=== PATIENT | female | born 1925 | race American Indian/Alaskan Native ===

== ENCOUNTER 2017-06-24 16:47 | Inpatient (IN) | payer MEDICARE ==
[2017-06-24 16:49] VITALS: BMI 33.0
--- NOTE | 2017-06-24 18:10 | ED PDOC ---
Arrival/HPI <Kyle Amador - Last Filed: 06/24/17 22:44> - General Historian: Patient EM Caveat: Acuity of Condition - History of Present Illness Time/Duration: Prior to Arrival Symptom Onset: Gradual Symptom Course: Unchanged Quality: Aching Severity Level: 6 Activities at Onset: Rest Context: Home <Alvarado Melgar - Last Filed: 06/24/17 22:54> - General Chief Complaint: GI Problem Time Seen by Provider: 06/24/17 17:21 - History of Present Illness Narrative History of Present Illness (Text): 06/24/17 18:13 89 year old female patient with past medical history of rectal polyp (2013), sarcoidosis, HTN, DM II presents with complaints of constipation for 3 days. Most of history was obtained through patient's daughter since patient was too tired to speak. As per patient's daughter, she has been having issues with constipation on and off for the past few months. Patient was diagnosed with rectal cancer in 2013 in [place] but has not followed up through with a colonoscopy because she didn't want to go through the process at her age. However in the last two weeks patient was complaining of abdominal pain when attempting to move her bowels and decided to set an appt with her GI physician Dr. Mccarthy for to be evaluated for 06/28/17 for colonoscopy. Patient denies nausea, vomiting, diarrhea, lack of flatulence, dysuria, headache, dizziness, weakness. PMD: Dr. Nicole SHx: hysterectomy, Left knee replacement (Alvarado Melgar) Past Medical History - Provider Review Nursing Documentation Reviewed: Yes - Travel History If Yes, travel location?: [place] - Infectious Disease Hx of Infectious Diseases: None - Tetanus Immunization Tetanus Immunization: Unknown - Cardiac Hx Hypertension: Yes - Pulmonary Hx Respiratory Disorders: No - Neurological Hx Neurological Disorder: Yes Other/Comment: benign brain tumor - HEENT Hx HEENT Disorder: Yes Hx Cataracts: Yes (sx) - Renal Hx Renal Disorder: No - Endocrine/Metabolic Hx Diabetes Mellitus Type 2: Yes - Hematological/Oncological Hx Blood Disorders: Yes Other/Comment: sarcoidosis - Integumentary Hx Dermatological Disorder: Yes (LARGE SCARRING TO LEFT [id number] SKIN GRAFT) - Musculoskeletal/Rheumatological Hx Falls: Yes (in the past) - Gastrointestinal Hx Gastrointestinal Disorders: Yes Hx Diverticulitis: Yes Other/Comment: h/o rectal cancer - Genitourinary/Gynecological Hx Reproductive Disorders: Yes (hysterectomy) - Psychiatric Hx Psychophysiologic Disorder: No Hx Substance Use: No - Surgical History Hx Hysterectomy: Yes Other/Comment: LEFT KNEE REPLACED WITH KNEE IMPLANT REMOVED,LARGE SCARRING, DISFIGURED LOOK.KELOID FORMED.SKIN GRAFT TO IT.RIGHT THIGH SKIN WAS TAKEN. - Anesthesia Hx Anesthesia: No Hx Anesthesia Reactions: No Hx Malignant Hyperthermia: No - Suicidal Assessment Feels Threatened In Home Enviroment: No <Alvarado Melgar - Last Filed: 06/24/17 22:54> Family/Social History <Kyle Amador - Last Filed: 06/24/17 22:44> - Physician Review Nursing Documentation Reviewed: Yes Family/Social History: Other Smoking Status: Never Smoked Hx Alcohol Use: No Hx Substance Use: No Hx Substance Use Treatment: No <Alvarado Melgar - Last Filed: 06/24/17 22:54> Narrative Family History (Free Text): non contributory 06/24/17 18:08 (Alvarado Melgar) Allergies/Home Meds <Kyle Amador - Last Filed: 06/24/17 22:44> <Alvarado Melgar - Last Filed: 06/24/17 22:54> Allergies/Adverse Reactions: Allergies No Known Allergies Allergy (Verified 06/24/17 17:06) Home Medications: Home Meds Medication Instructions Recorded Confirmed Amlodipine Besylate [Norvasc] 5 mg PO DAILY 11/10/15 06/24/17 Concor 2.5 mg PO DAILY 06/24/17 06/24/17 MetFORMIN [glucoPHAGE] 500 tab PO BID 06/24/17 06/24/17 Trental 400 mg PO BID 06/24/17 06/24/17 diaZEpam [Valium] 5 mg PO DAILY 06/24/17 06/24/17 Review of Systems - Physician Review All systems were reviewed & negative as marked: Yes - Review of Systems Systems not reviewed;Unavailable: Acuity of Condition Constitutional: absent: Fatigue, Weight Change Eyes: absent: Vision Changes ENT: absent: Hearing Changes, Tinnitus Respiratory: Cough. absent: SOB Cardiovascular: absent: Chest Pain, Palpitations Gastrointestinal: Abdominal Pain, Constipation, Appetite Changes. absent: Diarrhea, Nausea, Vomiting Genitourinary Female: Frequency. absent: Dysuria Skin: absent: Rash, Pruritis Neurological: absent: Headache, Dizziness, Focal Weakness Endocrine: Normal Hemo/Lymphatic: Normal Psychiatric: Normal <Alvarado Melgar - Last Filed: 06/24/17 22:54> Physical Exam Vital Signs Reviewed: Yes Temperature: Afebrile Blood Pressure: Normal Pulse: Regular Appearance: Positive for: Comfortable (falling asleep because she didn't sleep much the night before) Pain Distress: Mild Mental Status: Positive for: Alert and Oriented X 3 - Systems Exam Head: Present: Atraumatic, Normocephalic Extroacular Muscles: Present: EOMI Conjunctiva: Present: Normal Mouth: Present: Moist Mucous Membranes. No: Dry Respiratory/Chest: Present: Clear to Auscultation, Good Air Exchange Cardiovascular: Present: Regular Rate and Rhythm, Murmurs, Normal S1, S2 Abdomen: Present: Tenderness, Distention, Normal Bowel Sounds (absent). No: Peritoneal Signs, Rebound, Guarding Upper Extremity: Present: Normal Inspection Lower Extremity: Present: Edema (B/L), Other (scar and keloid growth on left LE due to knee replacement surgery olivier not healing well. ). No: CALF TENDERNESS Skin: Present: Warm, Normal Color Psychiatric: Present: Alert, Oriented x 3 <Alvarado Melgar - Last Filed: 06/24/17 22:54> Vital Signs Temp Pulse Resp BP Pulse Ox 06/24/17 17:03 98.1 F 59 L 19 107/57 L 96 Medical Decision Making <Kyle Amador - Last Filed: 06/24/17 22:44> - Lab Interpretations I have reviewed the lab results: Yes - RAD Interpretation Penal Officer: Radiologist <Alvarado Melgar - Last Filed: 06/24/17 22:54> ED Course and Treatment: 06/24/17 22:02 Florinda Bethea is an 89 year old female whose presents to the emergency department complaining of constipation for the past few months. In agreement with resident note which contains more details about the patient. Patient was seen and evaluated with resident. Came up with plan and treatment together. 06/24/17 22:[address] result showing SBO - will need to be admitted for surgical evaluation and treatment. K is also noted to be 5.5 - given sbo - will be unable to use kayexalate. Will give D50 and insulin. Case discussed with Dr. Crooks, covering Dr. Nicole for admission. Consult for Dr. Newell. (Kyle Amador) Assessment 89 year old female presenting with complaints of 3 days constipation Plan - CBC, CMP, Amylase, Lipase - CT abdomen - UA 06/24/17 18:32 (Alvarado Melgar) - Lab Interpretations Lab Results: 06/24/17 18:20 06/24/17 21:00 Lab Results 06/24/17 21:00: Potassium 5.5 H 06/24/17 20:15: Urine Color Yellow, Urine Appearance Clear, Urine pH 7.0, Ur Specific [place] 1.010, Urine Protein 30 H, Urine Glucose (UA) Negative, Urine Ketones Negative, Urine Blood Trace-intact H, Urine Nitrate Negative, Urine Bilirubin Negative, Urine Urobilinogen 0.2, Ur Leukocyte Esterase Trace H, Urine RBC 1 - 3, Urine WBC 2 - 5, Ur Epithelial Cells 6 - 8, Amorphous Sediment Few, Urine Bacteria Many, Hyaline Casts 0 - 2, Fine Granular Casts 0 - 2, Urine Other [place] 06/24/17 20:05: Sodium 139, Potassium 6.1 H*, Chloride 103, Carbon Dioxide 26, Anion Gap 16, BUN 19, Creatinine 1.3, Est GFR ( Amer) 47, Est GFR (Non- Af Amer) 39, Random Glucose 121 H, Calcium 10.0, Total Bilirubin 0.3, AST 20, ALT 19, Alkaline Phosphatase 56, Total Protein 7.2, Albumin 4.1, Globulin 3.2, Albumin/Globulin Ratio 1.3, Amylase 72, Lipase 72 06/24/17 18:20: WBC 4.7, RBC 4.23, Hgb 11.0 L, Hct 35.0 L, MCV 82.7, MCH 26.0, MCHC 31.4, RDW 17.5 H, Plt Count 246, MPV 10.0, Gran % 51.1, Lymph % (Auto) 36.7 H, [place] % (Auto) 10.3 H, Eos % (Auto) 1.9, Baso % (Auto) 0.0, Gran # 2.38, Lymph # 1.7, [place] # 0.5, Eos # 0.1, Baso # 0.00 - RAD Interpretation Radiology Orders: 06/24/17 18:01 ABDOMEN & PELVIS [ABD & PELVIS PO CONTRAST ONLY] [CT] Stat 06/24/17 19:03 CHEST PORTABLE [RAD] Stat - Medication Orders Current Medication Orders: Dextrose (Dextrose 50% Inj) 100 ml IVP STAT STA Stop: 06/24/17 22:46 Sodium Chloride (Sodium Chloride 0.9%) 1,000 mls @ 100 mls/hr IV .Q10H STA Stop: 06/25/17 08:44 Insulin Human Regular (Humulin R) 8 units IVP ONCE STA Stop: 06/24/17 22:46 Discontinued Medications Iohexol (Omnipaque 240 (50 Ml)) Confirm Administered Dose 50 ml .ROUTE .STK-MED ONE Stop: 06/24/17 18:24 - PA / ELECTION ASSISTANT / Resident Statement / has reviewed & agrees with the documentation as recorded. / has examined the patient and agrees with the treatment plan. <Kyle Amador - Last Filed: 06/24/17 22:44> Disposition/Present on Arrival - Disposition Have Diagnosis and Disposition been Completed?: Yes Disposition Time: 22:30 Patient Plan: Admission <Kyle Amador - Last Filed: 06/24/17 22:44> - Present on Arrival Any Indicators Present on Arrival: No History of DVT/PE: No History of Uncontrolled Diabetes: No Urinary Catheter: No History of Decub. Ulcer: No History Surgical Site Infection Following: None <Alvarado Melgar - Last Filed: 06/24/17 22:54> - Disposition Diagnosis: Small bowel obstruction, Hyperkalemia Disposition: HOSPITALIZED Patient Problems: Current Active Problems Problem Status Onset Hyperkalemia Acute Small bowel obstruction Acute Condition: FAIR Referrals: Nabor Nicole MD [Primary Care Provider] - Follow up with primary Forms: [employer] ([employer])
[2017-06-24] MEDS ORDERED: Iohexol 240 (50 ml) ONE (18:23)
[2017-06-24 18:37] LABS: EOS # 0.1 (0.0-0.7); EOS % 1.9 % (1.5-5.0); GRAN # 2.38 (1.4-6.5); GRAN % 51.1 % (50.0-68.0); LYMPH # 1.7 (1.2-3.4); LYMPH % 36.7 % (22.0-35.0); MEAN CELL VOLUME 82.7 fl (80.0-105.0); MEAN CORPUSCULAR HGB CONC 31.4 g/dl (31.0-37.0); MONO # 0.5 (0.1-0.6); MONO % 10.3 % (1.0-6.0); RED CELL DISTRIBUTION WIDTH 17.5 % (11.5-14.5); WHITE BLOOD COUNT 4.7 10^3/ul (4.5-11.0)
[2017-06-24 20:22] LABS: ALB/GLOB RATIO 1.3 (1.1-1.8); BILIRUBIN,TOTAL 0.3 mg/dL (0.2-1.3); TOTAL PROTEIN 7.2 g/dL (5.8-8.3)
[2017-06-24 20:27] LABS: POTASSIUM 6.1 mmol/L (3.6-5.0)
[2017-06-24 20:29] LABS: URINE APPEARANCE CLEAR (CLEAR); URINE BILIRUBIN NEGATIVE (NEGATIVE); URINE BLOOD TRACE-INTACT (NEGATIVE); URINE COLOR YELLOW (YELLOW); URINE GLUCOSE (UA) NEGATIVE (NEGATIVE); URINE KETONE NEGATIVE (NEGATIVE); URINE LEUKOCYTE ESTERASE TRACE Leu/uL (NEGATIVE); URINE PROTEIN 30 mg/dL (<30 mg/dL); URINE UROBILINOGEN 0.2 E.U./dL (<1 E.U./dL)
[2017-06-24 20:32] LABS: URINE BACTERIA MANY (NEG)
[2017-06-24 20:34] LABS: URINE AMORPHOUS SEDIMENT FEW
[2017-06-24] MEDS ORDERED: Sod Polystyrene Sulf 15 gm/60 ml Oral Susp PO STA (22:12)
--- NOTE | 2017-06-24 22:32 | CT ---
EXAM: CT Abdomen and Pelvis Without Intravenous Contrast CLINICAL HISTORY: 89 years old, female; Pain; Abdominal pain; Prior surgery; Surgery type: Hysterectomy TECHNIQUE: Axial computed tomography images of the abdomen and pelvis without intravenous contrast. All CT scans at this facility use one or more dose reduction techniques, viz.: automated exposure control; ma/kV adjustment per patient size (including targeted exams where dose is matched to indication; i.e. head); or iterative reconstruction technique. Coronal and sagittal reformatted images were created and reviewed. COMPARISON: CT - ABD PELVIS PO CONTRAST ONLY 11/21/2015 1:08:24 AM FINDINGS: Lower thorax: Small hiatal hernia. Small amount of contrast within the mid and distal esophagus compatible with reflux or vomiting. There is mild atelectasis and/or scarring in the lung bases. The visualized heart appears mildly enlarged. The visualized thoracic aorta is atherosclerotic. ABDOMEN: Liver: There are no focal liver lesions present. Gallbladder and bile ducts: The gallbladder is contracted but otherwise normal. No calcified stones. No ductal dilation. Pancreas: Pancreas is slightly fatty replaced. No ductal dilation. Spleen: The spleen is normal. Adrenals: The adrenal glands are normal. Kidneys and ureters: There is no evidence of hydronephrosis. Stomach and bowel: There is small bowel obstruction, with proximal loops measuring up to 4 CM and distal loops are decompressed 2 as little as a millimeters. Transition zone appears to be at the mid abdomen. The stomach is normal. Colonic constipation is present. No mucosal thickening. Appendix: No findings to suggest acute appendicitis. PELVIS: Bladder: Bladder is partially decompressed and grossly unremarkable. No stones. Reproductive: Hysterectomy. ABDOMEN and PELVIS: Intraperitoneal space: There is no evidence of free intraperitoneal fluid. There is no free intraperitoneal air. Bones/joints: There are moderate degenerative changes present. There is moderate diffuse osteopenia. No acute fracture. No dislocation. Soft tissues: Unremarkable. Vasculature: There is calcification of the aortic root. The aorta demonstrates moderate atherosclerotic calcification. Lymph nodes: There is no evidence of lymphadenopathy. Other findings: Left mid pole cyst measures 6.4 CM. IMPRESSION: 1. Small hiatal hernia. Small amount of contrast within the mid and distal esophagus compatible with reflux or vomiting. 2. There is small bowel obstruction, with proximal loops measuring up to 4 CM and distal loops are decompressed 2 as little as a millimeters. Transition zone appears to be at the mid abdomen. 3. Additional incidental and/or chronic findings as described.
[2017-06-24] MEDS ORDERED: Sodium Chloride 0.9% 1,000 ML IV STA (22:45)
[2017-06-24] MEDS ORDERED: Insulin Regular 1 UNITS/0.01 ML ML IVP STA (22:45)
[2017-06-24] MEDS ORDERED: Dextrose 50% SYRINGE Inj (50 ml) IVP STA (22:45)
--- NOTE | 2017-06-25 00:02 | CP.PCM.HP ---
<Huber Parisi - Last Filed: 06/25/17 01:09> History of Present Illness - History of Present Illness History of Present Illness: cc: abdominal pain Patient is a 89 year old female with past medical history of diverticulitis, HTN , benign brain tumor, cataracts, DM, sarcoidosis, arthritis, and falls who presents to the ED for evaluation and treatment of abdominal pain which began 2 days ago. States the pain is characterized as a pressure that remains localized to the lower abdomen. Denies exacerbating and remitting factors. States her last BM was 3 days ago, which was nonbloody. Patient is tolerating diet. As per the ED chart, the patient was diagnosed with rectal cancer in 2013 in [place] but has not followed up through with a colonoscopy because she didn't want to go through the process at her age. Denies fever, chills, chest pain, SOB, N/V, diarrhea, and urinary symptoms. PMD: Dr. Nicole GI Physician- Dr. Mccarthy PMHx: diverticulitis, HTN, Benign brain tumor, cataracts, DM, sarcoidosis, arthritis, falls, SHx: hysterectomy, Left knee replacement, skin graft Allergies: NKDA Social: denies ETOH use, tobacco use, and illicit drug use Family hx- HTN Present on Admission - Present on Admission Any Indicators Present on Admission: Yes Review of Systems - Hematologic/Lymphatic Additional comments: 12 point review of systems negative except as indicated in HPI Past Patient History - Infectious Disease Hx of Infectious Diseases: None - Tetanus Immunizations Tetanus Immunization: Unknown - Past Social History Smoking Status: Never Smoked - CARDIAC Hx Hypertension: Yes - PULMONARY Hx Respiratory Disorders: No - NEUROLOGICAL Hx Neurological Disorder: Yes Other/Comment: benign brain tumor - HEENT Hx HEENT Problems: Yes Hx Cataracts: Yes (sx) - RENAL Hx Chronic Kidney Disease: No - ENDOCRINE/METABOLIC Hx Diabetes Mellitus Type 2: Yes - HEMATOLOGICAL/ONCOLOGICAL Hx Blood Disorders: Yes Other/Comment: sarcoidosis - INTEGUMENTARY Hx Dermatological Problems: Yes (LARGE SCARRING TO LEFT [id number] SKIN GRAFT) - MUSCULOSKELETAL/RHEUMATOLOGICAL Hx Falls: Yes (in the past) - GASTROINTESTINAL Hx Gastrointestinal Disorders: Yes Hx Diverticulitis: Yes Other/Comment: h/o rectal cancer - GENITOURINARY/GYNECOLOGICAL Hx Reproductive Disorders: Yes (hysterectomy) - PSYCHIATRIC Hx Psychophysiologic Disorder: No Hx Substance Use: No - SURGICAL HISTORY Hx Hysterectomy: Yes Other/Comment: LEFT KNEE REPLACED WITH KNEE IMPLANT REMOVED,LARGE SCARRING, DISFIGURED LOOK.KELOID FORMED.SKIN GRAFT TO IT.RIGHT THIGH SKIN WAS TAKEN. - ANESTHESIA Hx Anesthesia: No Hx Anesthesia Reactions: No Hx Malignant Hyperthermia: No Meds Allergies/Adverse Reactions: Allergies Allergy/AdvReac Type Severity Reaction Status Date / Time No Known Allergies Allergy Verified 06/24/17 17:06 Physical Exam - Constitutional Appears: Non-toxic, No Acute Distress - Head Exam Head Exam: ATRAUMATIC, NORMAL INSPECTION - Eye Exam Eye Exam: Normal appearance. absent: Scleral icterus - ENT Exam ENT Exam: Mucous Membranes Moist - Neck Exam Neck exam: Positive for: Normal Inspection. Negative for: Tenderness - Respiratory Exam Respiratory Exam: Clear to Auscultation Bilateral, NORMAL BREATHING PATTERN - Cardiovascular Exam Cardiovascular Exam: +S1, +S2 - GI/Abdominal Exam GI & Abdominal Exam: Soft. absent: Rebound, Rigid, Tenderness - Extremities Exam Extremities exam: Positive for: pedal pulses present. Negative for: tenderness - Neurological Exam Neurological exam: CN II-XII Intact, Oriented x3 - Psychiatric Exam Psychiatric exam: Normal Affect, Normal Mood - Skin Additional comments: medial left lower extremity skin lesion noted, no tenderness to palplation, no erythema, no discharge Results - Vital Signs Recent Vital Signs: Last Vital Signs Temp 98.1 F 06/24/17 17:03 Pulse 59 L 06/24/17 17:03 Resp 19 06/24/17 17:03 BP 107/57 L 06/24/17 17:03 Pulse Ox 96 06/24/17 17:03 - Labs Result Diagrams: 06/24/17 18:20 06/24/17 21:00 Assessment & Plan - Assessment and Plan (Free Text) Assessment: Patient is a 89 year old female with past medical history of diverticulitis, HTN , benign brain tumor, cataracts, DM, sarcoidosis, arthritis, falls who is being admitted to the hospital for evaluation and treatment of abdominal pain which began 2 days ago. Abdominal Pain; SBO - CT of abdomen/pelvis reviewed: 1. Small hiatal hernia. Small amount of contrast within the mid and distal esophagus compatible with reflux or vomiting. 2. There is small bowel obstruction, with proximal loops measuring up to 4 CM and distal loops are decompressed 2 as little as a millimeters. Transition zone appears to be at the mid abdomen. - surgery consult- spoke with surgery resident no need for NGT as patient is not vomitting - NPO - IVF Hyperkalemia - 6.1 noted, given insulin/dextrose in ED- down to 5.5 - IVF - monitor closely via daily CMP - no kayexlyate at this time; consider starting kayexlyate if potassium remains greater than 5 in AM - EKG noted, reorder if K > 5 in AM HTN - hold home amlodipine, trental and concor as HR and BP are low normal at this time, monitor closely DM - hold home antidiabetic medications - ISS - Accuchecks ACHS Anemia - noted and Hgb/Hct are at baseline Abnormal UA: - positive for proteins, trace leukocyte esterase, trace blood - no urinary symptoms PPX - protonixs IV - SCD Case will be discussed with attending physician. <Barrett Crooks - Last Filed: 06/25/17 07:40> Results - Vital Signs Recent Vital Signs: Last Vital Signs Temp 97.9 F 06/25/17 07:26 Pulse 76 06/25/17 07:26 Resp 18 06/25/17 07:26 BP 151/73 H 06/25/17 01:17 Pulse Ox 94 L 06/25/17 07:26 - Labs Result Diagrams: 06/24/17 18:20 06/24/17 21:00 Assessment & Plan - Assessment and Plan (Free Text) Plan: went over meds labs xrays consults orders at length w/. the resident
--- NOTE | 2017-06-25 01:13 | CP.PCM.CON ---
History of Present Illness - History of Present Illness History of Present Illness: General Surgery Consult Re: SBO HPI: 89F presented to ED C/O abdominal pain which began 2 days ago. Pain is suprapubic. Last BM was 3 days ago, normal, no blood in bowl. Tolerating diet. Denied F/C, N/V,D, chest pain, SOB, or urinary symptoms. No other complaints. PMH: Hx rectal CA, DM, sarcoidosis, Hx diverticulitis, HTN, benign brain tumor, cataracts, arthritis PSH: hysterectomy, L knee replacement, skin graft SH: denies ETOH use, tobacco use, and illicit drug use All: NKDA Meds: See MAR Review of Systems - Review of Systems All systems: reviewed and no additional remarkable complaints except (as per HPI ) Past Patient History - Infectious Disease Hx of Infectious Diseases: None - Tetanus Immunizations Tetanus Immunization: Unknown - Past Social History Smoking Status: Never Smoked - CARDIAC Hx Hypertension: Yes - PULMONARY Hx Respiratory Disorders: No - NEUROLOGICAL Hx Neurological Disorder: Yes Other/Comment: benign brain tumor - HEENT Hx HEENT Problems: Yes Hx Cataracts: Yes (sx) - RENAL Hx Chronic Kidney Disease: No - ENDOCRINE/METABOLIC Hx Diabetes Mellitus Type 2: Yes - HEMATOLOGICAL/ONCOLOGICAL Hx Blood Disorders: Yes Other/Comment: sarcoidosis - INTEGUMENTARY Hx Dermatological Problems: Yes (LARGE SCARRING TO LEFT [id number] SKIN GRAFT) - MUSCULOSKELETAL/RHEUMATOLOGICAL Hx Falls: Yes (in the past) - GASTROINTESTINAL Hx Gastrointestinal Disorders: Yes Hx Diverticulitis: Yes Other/Comment: h/o rectal cancer - GENITOURINARY/GYNECOLOGICAL Hx Reproductive Disorders: Yes (hysterectomy) - PSYCHIATRIC Hx Psychophysiologic Disorder: No Hx Substance Use: No - SURGICAL HISTORY Hx Hysterectomy: Yes Other/Comment: LEFT KNEE REPLACED WITH KNEE IMPLANT REMOVED,LARGE SCARRING, DISFIGURED LOOK.KELOID FORMED.SKIN GRAFT TO IT.RIGHT THIGH SKIN WAS TAKEN. - ANESTHESIA Hx Anesthesia: No Hx Anesthesia Reactions: No Hx Malignant Hyperthermia: No Meds Allergies/Adverse Reactions: Allergies Allergy/AdvReac Type Severity Reaction Status Date / Time No Known Allergies Allergy Verified 06/24/17 17:06 - Medications Medications: Current Medications Sodium Chloride (Sodium Chloride 0.9%) 1,000 mls @ 100 mls/hr IV .Q10H STA Stop: 06/25/17 08:44 Last Admin: 06/24/17 23:00 Dose: 100 mls/hr Pantoprazole Sodium (Protonix Inj) 40 mg IVP DAILY CIPRIANO Physical Exam - Constitutional Appears: Non-toxic, No Acute Distress - Head Exam Head Exam: ATRAUMATIC, NORMOCEPHALIC - Eye Exam Eye Exam: EOMI Additional comments: cataracts - ENT Exam ENT Exam: Mucous Membranes Dry Additional comments: trachea midline - Respiratory Exam Respiratory Exam: NORMAL BREATHING PATTERN. absent: Respiratory Distress - Cardiovascular Exam Cardiovascular Exam: RRR, +S1, +S2 - GI/Abdominal Exam GI & Abdominal Exam: Guarding (mild), Soft, Tenderness (in suprapubic area). absent: Distended, Firm, Rebound, Rigid Additional comments: old midline scar from hysterectomy - Rectal Exam Rectal Exam: Deferred - Extremities Exam Extremities exam: Negative for: calf tenderness, tenderness - Back Exam Back exam: absent: CVA tenderness (L), CVA tenderness (R) - Neurological Exam Neurological exam: Alert, Oriented x3 - Skin Skin Exam: Dry, Warm Results - Vital Signs Recent Vital Signs: Last Vital Signs Temp 98.1 F 06/24/17 17:03 Pulse 64 06/25/17 00:00 Resp 16 06/25/17 00:00 BP 180/76 H 06/25/17 00:00 Pulse Ox 95 06/25/17 00:00 - Labs Result Diagrams: 06/24/17 18:20 06/24/17 21:00 - Imaging and Cardiology CT scan - abdomen Status: Image reviewed by me, Report reviewed by me Assessment & Plan - Assessment and Plan (Free Text) Assessment: 89F with SBO Plan: NPO IVF analgesia PRN NGT if pt begins vomiting Zofran PRN Serial abdominal exams Monitor for BMs/flatus Hyperkalemia management per medicine Will D/W Dr Reece Aviles PGY4
[2017-06-25] MEDS: Sodium Chloride 0.9% 1,000 ML IV SCH ×2 (06:33→17:50)
[2017-06-25] MEDS: Insulin Lispro (humaLOG) MEDIUM Coverage SC SCH ×4 (09:54→21:44)
[2017-06-25 09:59] LABS: EOS # 0.1 (0.0-0.7); EOS % 2.4 % (1.5-5.0); GRAN # 2.88 (1.4-6.5); GRAN % 52.7 % (50.0-68.0); HEMATOCRIT 34.2 % (36.0-48.0); LYMPH # 1.8 (1.2-3.4); LYMPH % 32.7 % (22.0-35.0); MEAN CELL VOLUME 82.4 fl (80.0-105.0); MEAN CORPUSCULAR HEMOGLOBIN 25.8 pg (25.0-35.0); MEAN CORPUSCULAR HGB CONC 31.3 g/dl (31.0-37.0); MEAN PLATELET VOLUME 10.1 fl (7.0-11.0); MONO # 0.7 (0.1-0.6); MONO % 12.2 % (1.0-6.0); RED CELL DISTRIBUTION WIDTH 17.5 % (11.5-14.5); WHITE BLOOD COUNT 5.5 10^3/ul (4.5-11.0)
[2017-06-25 10:14] LABS: ALB/GLOB RATIO 1.2 (1.1-1.8); BILIRUBIN,TOTAL 0.3 mg/dL (0.2-1.3); CALCIUM 9.8 mg/dL (8.4-10.5); POTASSIUM 5.1 mmol/L (3.6-5.0)
[2017-06-25] MEDS ORDERED: Sod Polystyrene Sulf 15 gm/60 ml Oral Susp PO ONE ×2 (10:23→18:05)
--- NOTE | 2017-06-25 10:24 | RAD ---
HISTORY: cough COMPARISON: Comparison chest 03/14/2016 FINDINGS: LUNGS: Diffuse bilateral somewhat nodular appearing infiltrates. Rule out interstitial pneumonia versus interstitial edema - CHF clinical correlation recommended PLEURA: No significant pleural effusion identified, no pneumothorax apparent. CARDIOVASCULAR: Heart remains enlarged. OSSEOUS STRUCTURES: Degenerative osteoarthritis both shoulder girdles multilevel degenerative spondylosis of the thoracic spine. There is also a mild dextroscoliosis centered at thoracolumbar junction. Left VISUALIZED UPPER ABDOMEN: Normal. OTHER FINDINGS: None. IMPRESSION: Diffuse bilateral somewhat nodular appearing infiltrates. Rule out interstitial pneumonia versus interstitial edema - CHF clinical correlation recommended Cardiomegaly.
--- NOTE | 2017-06-25 10:33 | CP.PCM.PN ---
<Mary Jane Triana - Last Filed: 06/25/17 13:28> Subjective - Date & Time of Evaluation Date of Evaluation: 06/25/17 Time of Evaluation: 10:31 - Subjective Subjective: PGY-2 Progress note Patient seen and examined at bedside. No acute distress. Nurse reports patient had 1 large BM overnight. Patient states that the abd pain resolved. She deneis chest pain, sob, n/v, fevers, chills, dysuria, hematuria. Objective - Vital Signs/Intake and Output Vital Signs (last 24 hours): Temp Pulse Resp BP Pulse Ox 97.4 F L 76 18 153/60 H 90 L 06/25/17 07:30 06/25/17 07:30 06/25/17 07:30 06/25/17 07:30 06/25/17 07:30 - Medications Medications: Current Medications Amlodipine Besylate (Norvasc) 5 mg PO DAILY [facility] Sodium Chloride (Sodium Chloride 0.9%) 1,000 mls @ 75 mls/hr IV .[id number] [facility] Last Admin: 06/25/17 06:33 Dose: 75 mls/hr Insulin Human Lispro (Humalog Med) 0 units SC ACHS [facility] PRN Reason: Protocol Last Admin: 06/25/17 09:54 Dose: Not Given Pantoprazole Sodium (Protonix Inj) 40 mg IVP DAILY [facility] Last Admin: 06/25/17 09:08 Dose: 40 mg - Labs Labs: 06/25/17 09:30 06/25/17 09:30 - Constitutional Appears: Well, No Acute Distress - Head Exam Head Exam: ATRAUMATIC, NORMOCEPHALIC - Eye Exam Eye Exam: EOMI, Normal appearance - ENT Exam ENT Exam: Mucous Membranes Moist - Respiratory Exam Respiratory Exam: Clear to Ausculation Bilateral, NORMAL BREATHING PATTERN. absent: Decreased Breath Sounds, Rales, Rhonchi, Wheezes, Respiratory Distress - Cardiovascular Exam Cardiovascular Exam: REGULAR RHYTHM, +S1, +S2. absent: Tachycardia, Murmur - GI/Abdominal Exam GI & Abdominal Exam: Soft, Normal Bowel Sounds. absent: Distended, Firm, Tenderness - Extremities Exam Extremities Exam: Normal Inspection. absent: Pedal Edema, Tenderness - Neurological Exam Neurological Exam: Alert, Awake, Oriented x3 - Skin Skin Exam: Dry, Intact, Normal Color, Warm Assessment and Plan - Assessment and Plan (Free Text) Assessment: 89 yo female with pmh of diverticulitis, HTN, benign brain tumor, cataracts, DM , sarcoidosis, arthritis, falls who presents for evaluation and treatment of abdominal pain which began 2 days ago. Plan: 1. Abdominal Pain; SBO - CT of abdomen/pelvis reviewed: 1. Small hiatal hernia. Small amount of contrast within the mid and distal esophagus compatible with reflux or vomiting. 2. There is small bowel obstruction, with proximal loops measuring up to 4 CM and distal loops are decompressed 2 as little as a millimeters. Transition zone appears to be at the mid abdomen. - patient had BM - advance diet to CLD - surgery consulted - cont IVF, will D/C once tolerating diet 2. Hyperkalemia - 6.1 noted on admission, given insulin/dextrose in ED- down to 5.5 - AM labs, K is pending - if conts to be elevated will give kayexylate 3. HTN - BP improved, mildly elevated - will restart amlodipine 5 mg daily - will hold home trental and concor for now and will resume if BP not controlled - will cont to monitor HR and BP DM - hold home antidiabetic medications - ISS - Accuchecks ACHS Anemia - noted and Hgb/Hct are at baseline Abnormal UA: - positive for proteins, trace leukocyte esterase, trace blood - no urinary symptoms - follow up urine cultures PPX - protonixs IV - SCD <Barrett Crooks - Last Filed: 06/25/17 14:43> Objective - Vital Signs/Intake and Output Vital Signs (last 24 hours): Temp Pulse Resp BP Pulse Ox 97.4 F L 76 18 153/60 H 90 L 06/25/17 07:30 06/25/17 07:30 06/25/17 07:30 06/25/17 10:55 06/25/17 07:30 - Medications Medications: Current Medications Amlodipine Besylate (Norvasc) 5 mg PO DAILY [facility] Last Admin: 06/25/17 10:55 Dose: 5 mg Sodium Chloride (Sodium Chloride 0.9%) 1,000 mls @ 75 mls/hr IV .[id number] [facility] Last Admin: 06/25/17 06:33 Dose: 75 mls/hr Insulin Human Lispro (Humalog Med) [address] [facility] PRN Reason: Protocol Last Admin: 06/25/17 12:08 Dose: Not Given Pantoprazole Sodium (Protonix Inj) 40 mg IVP DAILY [facility] Last Admin: 06/25/17 09:08 Dose: 40 mg - Labs Labs: 06/25/17 09:30 06/25/17 09:30 Assessment and Plan - Assessment and Plan (Free Text) Plan: went over w/ resident at length labs orders meds improve w/ bm and decrease in pain increas diet to liquids watch closely oob pt recheck labs as per surgery clinically improved
[2017-06-25] MEDS: RIBOFLAVIN PO SCH (21:43)
[2017-06-26] MEDS: Pantoprazole 40 mg EC Tab PO SCH (06:17)
[2017-06-26 07:03] LABS: BASO # 0.01 K/mm3 (0.0-2.0); BASO % 0.2 % (0.0-3.0); EOS # 0.1 (0.0-0.7); EOS % 2.1 % (1.5-5.0); GRAN # 2.63 (1.4-6.5); GRAN % 43.2 % (50.0-68.0); LYMPH # 2.5 (1.2-3.4); LYMPH % 41.4 % (22.0-35.0); MEAN CELL VOLUME 82.9 fl (80.0-105.0); MEAN CORPUSCULAR HEMOGLOBIN 26.3 pg (25.0-35.0); MEAN CORPUSCULAR HGB CONC 31.7 g/dl (31.0-37.0); MONO # 0.8 (0.1-0.6); MONO % 13.1 % (1.0-6.0); RED CELL DISTRIBUTION WIDTH 17.6 % (11.5-14.5); WHITE BLOOD COUNT 6.1 10^3/ul (4.5-11.0)
[2017-06-26 07:24] LABS: ALB/GLOB RATIO 1.3 (1.1-1.8); ALKALINE PHOSPHATASE 57 U/L (38-126); ALT/SGPT 23 U/L (7-56); AST/SGOT 24 U/L (14-36); BILIRUBIN,TOTAL 0.4 mg/dL (0.2-1.3); BLOOD UREA NITROGEN 10 mg/dL (7-21); CALCIUM 9.5 mg/dL (8.4-10.5); CARBON DIOXIDE 26 mmol/L (21-33); CHLORIDE 107 mmol/L (98-107); GFR AFRICAN-AMERICAN > 60; GLUCOSE,RANDOM 119 mg/dL (70-110); MAGNESIUM 1.5 mg/dL (1.7-2.2); PHOSPHOROUS 3.6 mg/dL (2.5-4.5); POTASSIUM 4.2 mmol/L (3.6-5.0); SODIUM 143 mmol/L (132-148)
[2017-06-26] MEDS: Insulin Lispro (humaLOG) MEDIUM Coverage SC SCH ×4 (08:47→22:37)
--- NOTE | 2017-06-26 09:05 | CP.PCM.PN ---
Subjective - Date & Time of Evaluation Date of Evaluation: 06/26/17 Time of Evaluation: 09:02 - Subjective Subjective: General Surgery Progress note for Dr. Newell Patient S&E at bedside. JERE. Patient had some complaints of headaches and abdominal pain overnight. This morning, patient states she feels better Objective - Vital Signs/Intake and Output Vital Signs (last 24 hours): Temp Pulse Resp BP Pulse Ox 98.3 F 102 H 20 161/72 H 80 L 06/26/17 07:28 06/26/17 07:28 06/26/17 07:28 06/26/17 07:28 06/26/17 07:28 Intake and Output: 06/26/17 06/26/17 06:59 18:59 Intake Total 240 Balance 240 - Medications Medications: Current Medications Amlodipine Besylate (Norvasc) 5 mg PO DAILY [facility] Last Admin: 06/25/17 10:55 Dose: 5 mg Diazepam (Valium) 5 mg PO DAILY [facility] PRN Reason: Protocol Home Med (Home Med) 1 unit PO QID [facility] Last Admin: 06/25/17 21:43 Dose: 1 unit Insulin Human Lispro (Humalog Med) 0 units SC ACHS [facility] PRN Reason: Protocol Last Admin: 06/26/17 08:47 Dose: Not Given Non-Formulary Medication (Concor) 2.5 mg PO DAILY [facility] Pantoprazole Sodium (Protonix Ec Tab) 40 mg PO 0600 [facility] Last Admin: 06/26/17 06:17 Dose: 40 mg Pentoxifylline (Pentoxil) 400 mg PO BID [facility] Last Admin: 06/25/17 17:50 Dose: 400 mg Pregabalin (Lyrica) 75 mg PO DAILY [facility] Senna/Docusate Sodium (Senokot S 50 Mg-8.6 Mg) 1 tab PO BID [facility] - Labs Labs: 06/26/17 06:45 06/26/17 06:45 - Constitutional Appears: Non-toxic - Head Exam Head Exam: NORMAL INSPECTION - Eye Exam Eye Exam: EOMI, Normal appearance - ENT Exam ENT Exam: Mucous Membranes Moist - Neck Exam Neck Exam: Full ROM - Respiratory Exam Respiratory Exam: Clear to Ausculation Bilateral. absent: Accessory Muscle Use , Respiratory Distress - Cardiovascular Exam Cardiovascular Exam: REGULAR RHYTHM, +S1, +S2. absent: Bradycardia, Tachycardia - GI/Abdominal Exam GI & Abdominal Exam: Soft, Tenderness Additional comments: mild tenderness. no rebound. Guarding old midline scar from hysterectomy - Extremities Exam Extremities Exam: Full ROM, Normal Inspection. absent: Calf Tenderness, Pedal Edema - Back Exam Back Exam: NORMAL INSPECTION - Neurological Exam Neurological Exam: Alert, Awake - Psychiatric Exam Psychiatric exam: Normal Affect, Normal Mood - Skin Skin Exam: Dry, Intact, Normal Color, Warm
[2017-06-26] MEDS: BISOPROLOL 2.5 MG PO SCH (09:11)
[2017-06-26] MEDS: Docusate-Senna 50 mg-8.6 mg Tab PO SCH ×2 (09:20→17:26)
[2017-06-26] MEDS: Enoxaparin 40 mg Syringe SC SCH (09:20)
[2017-06-26] MEDS: RIBOFLAVIN PO SCH ×4 (09:23→22:35)
[2017-06-26] MEDS ORDERED: Magnesium Sulfate 1 gm in D5W 1 GM/100 ML BAG IVPB ONE (09:23)
--- NOTE | 2017-06-26 14:07 | CP.PCM.PN ---
Subjective - Date & Time of Evaluation Date of Evaluation: 06/26/17 Time of Evaluation: 11:30 - Subjective Subjective: Patient seen and examined at bedside. As per nursing patient right UE is mildly swollen likely due to PIV infiltration. Patient states that her abdominal discomfort has improved since admission. Experienced a BM and is positive for flatus. Patient has an appetite and is tolerating diet. Offers no new complaints at this time. Denies f/c/cp/sob/abdominal pain/n/v/d/c/urinary symptoms. Objective - Vital Signs/Intake and Output Vital Signs (last 24 hours): Temp Pulse Resp BP Pulse Ox 98.3 F 102 H 20 161/72 H 80 L 06/26/17 07:28 06/26/17 07:28 06/26/17 07:28 06/26/17 09:21 06/26/17 07:28 Intake and Output: 06/26/17 06/26/17 06:59 18:59 Intake Total 240 Balance 240 - Medications Medications: Current Medications Amlodipine Besylate (Norvasc) 5 mg PO DAILY [facility] Last Admin: 06/26/17 09:21 Dose: 5 mg Diazepam (Valium) 5 mg PO DAILY [facility] PRN Reason: Protocol Last Admin: 06/26/17 09:20 Dose: 5 mg Enoxaparin Sodium (Lovenox) 40 mg SC DAILY [facility] PRN Reason: Protocol Last Admin: 06/26/17 09:20 Dose: 40 mg Home Med (Home Med) 1 unit PO QID [facility] Last Admin: 06/26/17 09:23 Dose: 1 unit Insulin Human Lispro (Humalog Med) 0 units SC ACHS [facility] PRN Reason: Protocol Last Admin: 06/26/17 08:47 Dose: Not Given Magnesium Oxide (Mag-Ox) 400 mg PO BID [facility] Non-Formulary Medication (Concor) 2.5 mg PO DAILY [facility] Last Admin: 06/26/17 09:11 Dose: Not Given Pantoprazole Sodium (Protonix Ec Tab) 40 mg PO 0600 [facility] Last Admin: 06/26/17 06:17 Dose: 40 mg Pentoxifylline (Pentoxil) 400 mg PO BID [facility] Last Admin: 06/26/17 09:20 Dose: 400 mg Pregabalin (Lyrica) 75 mg PO DAILY [facility] Last Admin: 06/26/17 09:20 Dose: 75 mg Senna/Docusate Sodium (Senokot S 50 Mg-8.6 Mg) 1 tab PO BID [facility] Last Admin: 06/26/17 09:20 Dose: 1 tab Tramadol HCl (Ultram) 50 mg PO TID PRN PRN Reason: Pain, moderate (4-7) - Labs Labs: 06/26/17 06:45 06/26/17 06:45 - Additional Findings Additional findings: - Constitutional Appears: Non-toxic, No Acute Distress - Head Exam Head Exam: ATRAUMATIC, NORMAL INSPECTION - Eye Exam Eye Exam: Normal appearance. absent: Scleral icterus - ENT Exam ENT Exam: Mucous Membranes Moist - Neck Exam Neck exam: Positive for: Normal Inspection. Negative for: Tenderness - Respiratory Exam Respiratory Exam: Clear to Auscultation Bilateral, NORMAL BREATHING PATTERN - Cardiovascular Exam Cardiovascular Exam: +S1, +S2 - GI/Abdominal Exam GI & Abdominal Exam: Soft. absent: Rebound, Rigid, Tenderness - Extremities Exam Extremities exam: Positive for: pedal pulses present. Negative for: tenderness - Neurological Exam Neurological exam: CN II-XII Intact, Oriented x3 - Psychiatric Exam Psychiatric exam: Normal Affect, Normal Mood - Skin Additional comments: medial left lower extremity skin lesion noted, no tenderness to palplation, no erythema, no discharge Assessment and Plan - Assessment and Plan (Free Text) Assessment: 89 yo female with pmh of diverticulitis, HTN, benign brain tumor, cataracts, DM , sarcoidosis, arthritis, falls who presents for evaluation and treatment of abdominal pain which began 2 days ago. Plan: Abdominal Pain; SBO - CT of abdomen/pelvis reviewed: 1. Small hiatal hernia. Small amount of contrast within the mid and distal esophagus compatible with reflux or vomiting. 2. There is small bowel obstruction, with proximal loops measuring up to 4 CM and distal loops are decompressed 2 as little as a millimeters. Transition zone appears to be at the mid abdomen. - patient had BM and is flatus - advance diet - no need for IVF at this time - no surgical intervention required at this time Right Arm Swelling - PIV inviltration vs dvt - US of right UE pending Hyperkalemia - 6.1 noted on admission, given insulin/dextrose in ED and kayexylate yesterday - resolved, decreased to 4.2 HTN - BP improved, mildly elevated - c/w amlodipine 5 mg daily - will hold home trental and concor for now and will resume if BP not controlled - will cont to monitor HR and BP DM - hold home antidiabetic medications - ISS - Accuchecks ACHS Anemia - noted and Hgb/Hct are at baseline Abnormal UA: - positive for proteins, trace leukocyte esterase, trace blood - no urinary symptoms - follow up urine cultures PPX - protonixs IV - lovenox Dispo: PT evaluation then placement to [facility] Plan discussed with and approved by attending physician, Dr. Sales.
[2017-06-26] MEDS: Magnesium Oxide 400 mg Tab UD PO SCH ×2 (14:36→17:26)
--- NOTE | 2017-06-26 20:00 | US ---
PROCEDURE: Right upper extremity venous US CLINICAL HISTORY: Arm pain and swelling Evaluate for deep venous thrombosis. PHYSICIAN(S): Brendan Coreas M.D FINDINGS: The exam is somewhat limited by edema. The visualized rightinternal jugular vein is sonographically normal and compressible. No evidence of obstruction or thrombus is seen. The visualized segments of the right subclavian vein are patent with normal waveforms. No sonographic evidence of obstruction or thrombosis is seen. The visualized deep venous system of the proximal right upper extremity is sonographically normal and compressible. IMPRESSION: 1. No sonographic evidence for deep venous thrombosis in the visualized segments of the right upper extremity.
[2017-06-27] MEDS: Pantoprazole 40 mg EC Tab PO SCH (06:40)
[2017-06-27 07:23] LABS: BASO # 0.01 K/mm3 (0.0-2.0); BASO % 0.2 % (0.0-3.0); EOS # 0.1 (0.0-0.7); EOS % 1.9 % (1.5-5.0); GRAN # 1.95 (1.4-6.5); GRAN % 40.7 % (50.0-68.0); HEMATOCRIT 35.1 % (36.0-48.0); LYMPH % 42.2 % (22.0-35.0); MEAN CELL VOLUME 82.6 fl (80.0-105.0); MEAN CORPUSCULAR HEMOGLOBIN 25.9 pg (25.0-35.0); MEAN CORPUSCULAR HGB CONC 31.3 g/dl (31.0-37.0); MEAN PLATELET VOLUME 10.2 fl (7.0-11.0); MONO # 0.7 (0.1-0.6); RED CELL DISTRIBUTION WIDTH 17.6 % (11.5-14.5); WHITE BLOOD COUNT 4.8 10^3/ul (4.5-11.0)
[2017-06-27] MEDS: Insulin Lispro (humaLOG) MEDIUM Coverage SC SCH ×4 (08:08→21:41)
[2017-06-27 08:16] LABS: ALB/GLOB RATIO 1.2 (1.1-1.8); BILIRUBIN,TOTAL 0.5 mg/dL (0.2-1.3); CALCIUM 9.5 mg/dL (8.4-10.5); POTASSIUM 4.1 mmol/L (3.6-5.0); TOTAL PROTEIN 6.9 g/dL (5.8-8.3)
[2017-06-27] MEDS: BISOPROLOL 2.5 MG PO SCH (09:09)
[2017-06-27] MEDS: RIBOFLAVIN PO SCH ×4 (09:09→21:40)
[2017-06-27] MEDS: Magnesium Oxide 400 mg Tab UD PO SCH ×2 (09:10→18:48)
[2017-06-27] MEDS: Enoxaparin 40 mg Syringe SC SCH (09:10)
[2017-06-27] MEDS: Docusate-Senna 50 mg-8.6 mg Tab PO SCH ×2 (09:11→18:45)
--- NOTE | 2017-06-27 21:33 | CP.PCM.PN ---
Subjective - Date & Time of Evaluation Date of Evaluation: 06/27/17 Time of Evaluation: 11:20 - Subjective Subjective: Patient seen and examined at bedside. Patient states that her abdominal discomfort has resolved since admission. Experienced a BM yesterday but not today. Positive for flatus. Patient has an appetite and is tolerating diet. Offers no new complaints at this time. Denies f/c/cp/sob/abdominal pain/n/v/d/c/ urinary symptoms. Objective - Vital Signs/Intake and Output Vital Signs (last 24 hours): Temp Pulse Resp BP Pulse Ox 97.4 F L 110 H 20 147/71 94 L 06/27/17 16:07 06/27/17 20:49 06/27/17 16:07 06/27/17 20:49 06/27/17 16:07 Intake and Output: 06/27/17 06/28/17 18:59 06:59 Intake Total 1400 660 Balance 1400 660 - Medications Medications: Current Medications Acetaminophen (Tylenol 325mg Tab) 650 mg PO Q6H PRN PRN Reason: Pain, moderate (4-7) Last Admin: 06/27/17 20:26 Dose: 650 mg Amlodipine Besylate (Norvasc) 5 mg PO DAILY [facility] Last Admin: 06/27/17 09:11 Dose: 5 mg Diazepam (Valium) 5 mg PO DAILY [facility] PRN Reason: Protocol Last Admin: 06/27/17 09:10 Dose: 5 mg Enoxaparin Sodium (Lovenox) 40 mg SC DAILY [facility] PRN Reason: Protocol Last Admin: 06/27/17 09:10 Dose: 40 mg Home Med (Home Med) 1 unit PO QID [facility] Last Admin: 06/27/17 18:46 Dose: 1 unit Insulin Human Lispro (Humalog Med) 0 units SC ACHS [facility] PRN Reason: Protocol Last Admin: 06/27/17 16:35 Dose: Not Given Magnesium Oxide (Mag-Ox) 400 mg PO BID [facility] Last Admin: 06/27/17 18:48 Dose: 400 mg Non-Formulary Medication (Concor) 2.5 mg PO DAILY [facility] Last Admin: 06/27/17 09:09 Dose: Not Given Pantoprazole Sodium (Protonix Ec Tab) 40 mg PO 0600 [facility] Last Admin: 06/27/17 06:40 Dose: 40 mg Pentoxifylline (Pentoxil) 400 mg PO BID [facility] Last Admin: 06/27/17 18:45 Dose: 400 mg Pregabalin (Lyrica) 75 mg PO DAILY [facility] Last Admin: 06/27/17 09:11 Dose: 75 mg Senna/Docusate Sodium (Senokot S 50 Mg-8.6 Mg) 1 tab PO BID [facility] Last Admin: 06/27/17 18:45 Dose: 1 tab Tramadol HCl (Ultram) 50 mg PO TID PRN PRN Reason: Pain, moderate (4-7) Last Admin: 06/26/17 15:40 Dose: 50 mg - Labs Labs: 06/27/17 07:19 06/27/17 07:19 - Additional Findings Additional findings: - Constitutional Appears: Non-toxic, No Acute Distress - Head Exam Head Exam: ATRAUMATIC, NORMAL INSPECTION - Eye Exam Eye Exam: Normal appearance. absent: Scleral icterus - ENT Exam ENT Exam: Mucous Membranes Moist - Neck Exam Neck exam: Positive for: Normal Inspection. Negative for: Tenderness - Respiratory Exam Respiratory Exam: Clear to Auscultation Bilateral, NORMAL BREATHING PATTERN - Cardiovascular Exam Cardiovascular Exam: +S1, +S2 - GI/Abdominal Exam GI & Abdominal Exam: Soft. absent: Rebound, Rigid, Tenderness - Extremities Exam Extremities exam: Positive for: pedal pulses present. Negative for: tenderness - Neurological Exam Neurological exam: CN II-XII Intact, Oriented x3 - Psychiatric Exam Psychiatric exam: Normal Affect, Normal Mood - Skin Additional comments: medial left lower extremity skin lesion noted, no tenderness to palplation, no erythema, no discharge Assessment and Plan - Assessment and Plan (Free Text) Assessment: 89 yo female with pmh of diverticulitis, HTN, benign brain tumor, cataracts, DM , sarcoidosis, arthritis, falls who presents for evaluation and treatment of abdominal pain which began 2 days ago. Plan: Abdominal Pain; SBO - CT of abdomen/pelvis reviewed: 1. Small hiatal hernia. Small amount of contrast within the mid and distal esophagus compatible with reflux or vomiting. 2. There is small bowel obstruction, with proximal loops measuring up to 4 CM and distal loops are decompressed 2 as little as a millimeters. Transition zone appears to be at the mid abdomen. - patient experiencing flatus-- awaiting additional bowel movement after given glycerin suppository - advance diet- tolerating diet - no need for IVF at this time - no surgical intervention required at this time Right Arm Swelling - PIV inviltration vs dvt - US of right UE negative for DVT - Swelling improved overnight Hyperkalemia - 6.1 noted on admission, given insulin/dextrose in ED and kayexylate yesterday - resolved, decreased to 4.1 HTN - BP improved, mildly elevated - c/w amlodipine 5 mg daily - will hold home trental and concor for now and will resume if BP not controlled - will cont to monitor HR and BP DM - hold home antidiabetic medications - ISS - Accuchecks ACHS Anemia - noted and Hgb/Hct are at baseline Abnormal UA: - positive for proteins, trace leukocyte esterase, trace blood - no urinary symptoms - follow up urine cultures PPX - protonixs IV - lovenox Dispo: PT evaluation then placement to [facility] Plan discussed with and approved by attending physician, Dr. Nicole.
[2017-06-28 03:59] VITALS: RESP 18
[2017-06-28 07:00] LABS: EOS # 0.1 (0.0-0.7); EOS % 2.2 % (1.5-5.0); GRAN # 1.61 (1.4-6.5); GRAN % 35.6 % (50.0-68.0); LYMPH # 2.2 (1.2-3.4); LYMPH % 49.2 % (22.0-35.0); MEAN CELL VOLUME 82.9 fl (80.0-105.0); MEAN CORPUSCULAR HEMOGLOBIN 25.9 pg (25.0-35.0); MEAN CORPUSCULAR HGB CONC 31.2 g/dl (31.0-37.0); MEAN PLATELET VOLUME 10.5 fl (7.0-11.0); MONO # 0.6 (0.1-0.6); RED CELL DISTRIBUTION WIDTH 17.1 % (11.5-14.5); WHITE BLOOD COUNT 4.5 10^3/ul (4.5-11.0)
[2017-06-28 07:04] LABS: ALB/GLOB RATIO 1.2 (1.1-1.8); BILIRUBIN,TOTAL 0.5 mg/dL (0.2-1.3); CALCIUM 9.4 mg/dL (8.4-10.5); POTASSIUM 3.9 mmol/L (3.6-5.0); TOTAL PROTEIN 6.5 g/dL (5.8-8.3)
[2017-06-28] MEDS: Pantoprazole 40 mg EC Tab PO SCH (07:16)
[2017-06-28 08:04] VITALS: PULSE 91; TEMP 98.3; O2SAT 93
[2017-06-28] MEDS ORDERED: Bisacodyl 5mg EC Tab PO ONE (08:18)
[2017-06-28] MEDS: Insulin Lispro (humaLOG) MEDIUM Coverage SC SCH ×3 (08:28→17:29)
[2017-06-28] MEDS: BISOPROLOL 2.5 MG PO SCH (09:30)
[2017-06-28] MEDS: Enoxaparin 40 mg Syringe SC SCH (09:31)
[2017-06-28] MEDS: RIBOFLAVIN PO SCH ×3 (09:31→17:29)
[2017-06-28] MEDS: Magnesium Oxide 400 mg Tab UD PO SCH ×2 (09:32→17:29)
[2017-06-28 09:34] VITALS: BP 162/90
[2017-06-28] MEDS: Docusate-Senna 50 mg-8.6 mg Tab PO SCH ×2 (09:34→17:30)
--- NOTE | 2017-06-28 15:03 | CP.PCM.DIS ---
Provider - Provider Date of Admission: 06/24/17 22:43 Attending physician: Nabor Nicole MD Primary care physician: Nabor Nicole MD Time Spent in preparation of Discharge (in minutes): 30 Diagnosis - Discharge Diagnosis (1) Diabetes Status: Acute Priority: Medium (2) Hyperkalemia Status: Acute Priority: High (3) Small bowel obstruction Status: Acute Priority: Medium (4) Hypertension Status: Acute Priority: Medium Hospital Course - Lab Results Lab Results: Most Recent Lab Values WBC 4.5 10^3/ul (4.5-11.0) 06/28/17 06:30 RBC 3.98 10^6/uL (3.5-6.1) 06/28/17 06:30 Hgb 10.3 g/dL (12.0-16.0) L 06/28/17 06:30 Hct 33.0 % (36.0-48.0) L 06/28/17 06:30 MCV 82.9 fl (80.0-105.0) 06/28/17 06:30 MCH 25.9 pg (25.0-35.0) 06/28/17 06:30 MCHC 31.2 g/dl (31.0-37.0) 06/28/17 06:30 RDW 17.1 % (11.5-14.5) H 06/28/17 06:30 Plt Count 190 10^3/uL (120.0-450.0) 06/28/17 06:30 MPV 10.5 fl (7.0-11.0) 06/28/17 06:30 Gran % 35.6 % (50.0-68.0) L 06/28/17 06:30 Lymph % (Auto) 49.2 % (22.0-35.0) H 06/28/17 06:30 [place] % (Auto) 13.0 % (1.0-6.0) H 06/28/17 06:30 Eos % (Auto) 2.2 % (1.5-5.0) 06/28/17 06:30 Baso % (Auto) 0.0 % (0.0-3.0) 06/28/17 06:30 Gran # 1.61 (1.4-6.5) 06/28/17 06:30 Lymph # 2.2 (1.2-3.4) 06/28/17 06:30 [place] # 0.6 (0.1-0.6) 06/28/17 06:30 Eos # 0.1 (0.0-0.7) 06/28/17 06:30 Baso # 0.00 K/mm3 (0.0-2.0) 06/28/17 06:30 Sodium 142 mmol/L (132-148) 06/28/17 06:30 Potassium 3.9 mmol/L (3.6-5.0) 06/28/17 06:30 Chloride 103 mmol/L (98-107) 06/28/17 06:30 Carbon Dioxide 29 mmol/L (21-33) 06/28/17 06:30 Anion Gap 14 (10-20) 06/28/17 06:30 BUN 14 mg/dL (7-21) 06/28/17 06:30 Creatinine 1.1 mg/dL (0.5-1.4) 06/28/17 06:30 Est GFR ( Amer) 57 06/28/17 06:30 Est GFR (Non-Af Amer) 47 06/28/17 06:30 POC Glucose (mg/dL) 146 mg/dL (65-110) H 06/28/17 11:22 Random Glucose 101 mg/dL (70-110) 06/28/17 06:30 Calcium 9.4 mg/dL (8.4-10.5) 06/28/17 06:30 Phosphorus 3.6 mg/dL (2.5-4.5) 06/26/17 06:45 Magnesium 1.5 mg/dL (1.7-2.2) L 06/26/17 06:45 Total Bilirubin 0.5 mg/dL (0.2-1.3) 06/28/17 06:30 AST 34 U/L (14-36) 06/28/17 06:30 ALT 31 U/L (7-56) 06/28/17 06:30 Alkaline Phosphatase 51 U/L (38-126) 06/28/17 06:30 Total Protein 6.5 g/dL (5.8-8.3) 06/28/17 06:30 Albumin 3.5 g/dL (3.0-4.8) 06/28/17 06:30 Globulin 3.0 gm/dL 06/28/17 06:30 Albumin/Globulin Ratio 1.2 (1.1-1.8) 06/28/17 06:30 Amylase 72 U/L (35-125) 06/24/17 20:05 Lipase 72 U/L (23-300) 06/24/17 20:05 Urine Color Yellow (YELLOW) 06/24/17 20:15 Urine Appearance Clear (CLEAR) 06/24/17 20:15 Urine pH 7.0 (4.7-8.0) 06/24/17 20:15 Ur Specific [place] 1.010 (1.005-1.035) 06/24/17 20:15 Urine Protein 30 mg/dL (<30 mg/dL) H 06/24/17 20:15 Urine Glucose (UA) Negative mg/dL (NEGATIVE) 06/24/17 20:15 Urine Ketones Negative mg/dL (NEGATIVE) 06/24/17 20:15 Urine Blood Trace-intact (NEGATIVE) H 06/24/17 20:15 Urine Nitrate Negative (NEGATIVE) 06/24/17 20:15 Urine Bilirubin Negative (NEGATIVE) 06/24/17 20:15 Urine Urobilinogen 0.2 E.U./dL (<1 E.U./dL) 06/24/17 20:15 Ur Leukocyte Esterase Trace Trena/uL (NEGATIVE) H 06/24/17 20:15 Urine RBC 1 - 3 /hpf (0-2) 06/24/17 20:15 Urine WBC 2 - 5 /hpf (0-6) 06/24/17 20:15 Ur Epithelial Cells 6 - 8 /hpf (0-5) 06/24/17 20:15 Amorphous Sediment Few 06/24/17 20:15 Urine Bacteria Many (NEG) 06/24/17 20:15 Hyaline Casts 0 - 2 /hpf 06/24/17 20:15 Fine Granular Casts 0 - 2 /hpf (0-2) 06/24/17 20:15 Urine Other Uyeast 06/24/17 20:15 - Hospital Course Hospital Course: Patient is a 89 year old female with a PMHX of diverticulitis, HTN, benign brain tumor, cataracts, DM, sarcoidosis, arthritis, falls who was admitted to the hospital for evaluation and treatment of abdominal pain. With the use of physical examinations, lab work, and imaging the patient was diagnosed with a small bowel obstruction and hyperkalemia. A CT of the abdomen was done showing a small hiatal hernia and a small bowel obstruction. During her hospital stay the patient was also seen by general surgery, Dr. Newell who advised no surgical intervention was needed. Patient was given a glycerin tablet and experienced multiple bowel movement/flatus and is tolerating her diet without N/ V indicating resolution of the small bowel obstruction. Patient experienced right upper extremity swelling secondary to a peripheral IV infiltration. Doppler ultrasound the right upper extremity was negative for DVT. Patient is medically stable to discharge to the TCU. We will continue to follow patient while in TCU. Patient understands and appreciates discharge plan. Advised to take medications as prescribed. Informed to return to ED once discharged from TCU, for evaluation of fever, chills, chest pain, SOB, abdominal pain, N/V, diarrhea, constipation, and urinary symptoms. Assessment: 89 yo female with pmh of diverticulitis, HTN, benign brain tumor, cataracts, DM , sarcoidosis, arthritis, falls who was admitted for evaluation and treatment of abdominal pain. Plan: Abdominal Pain; SBO - CT of abdomen/pelvis reviewed: 1. Small hiatal hernia. Small amount of contrast within the mid and distal esophagus compatible with reflux or vomiting. 2. There is small bowel obstruction, with proximal loops measuring up to 4 CM and distal loops are decompressed 2 as little as a millimeters. Transition zone appears to be at the mid abdomen. - patient experiencing flatus-- awaiting additional bowel movement after given glycerin suppository - advance diet- tolerating diet - no need for IVF at this time - no surgical intervention required at this time - resolved Right Arm Swelling - PIV inviltration vs dvt - US of right UE negative for DVT - resolved Hyperkalemia - 6.1 noted on admission, given insulin/dextrose in ED and kayexylate yesterday - resolved, decreased to 3.9 HTN - BP mildly elevated - C/w amlodipine 5 mg daily and concor, will consider hydralazine prn if BP remains elevated in TCU - Will continue to monitor HR and BP in TCU DM - Hold home antidiabetic medications - ISS - Accuchecks ACHS Anemia - noted and Hgb/Hct are at baseline Abnormal UA: - positive for proteins, trace leukocyte esterase, trace blood - no urinary symptoms - follow up urine cultures - E.coli, patient on cipro 500 BID PPX - protonixs IV - lovenox Dispo: TCU Plan discussed with and approved by attending physician, Dr. Cote. Discharge Exam - Head Exam Head Exam: NORMAL INSPECTION - Additional Findings Additional findings: - Constitutional Appears: Non-toxic, No Acute Distress - Head Exam Head Exam: ATRAUMATIC, NORMAL INSPECTION - Eye Exam Eye Exam: Normal appearance. absent: Scleral icterus - ENT Exam ENT Exam: Mucous Membranes Moist - Neck Exam Neck exam: Positive for: Normal Inspection. Negative for: Tenderness - Respiratory Exam Respiratory Exam: Clear to Auscultation Bilateral, NORMAL BREATHING PATTERN - Cardiovascular Exam Cardiovascular Exam: +S1, +S2 - GI/Abdominal Exam GI & Abdominal Exam: Soft. absent: Rebound, Rigid, Tenderness - Extremities Exam Extremities exam: Positive for: pedal pulses present. Negative for: tenderness - Neurological Exam Neurological exam: CN II-XII Intact, Oriented x3 - Psychiatric Exam Psychiatric exam: Normal Affect, Normal Mood - Skin Additional comments: medial left lower extremity skin lesion noted, no tenderness to palplation, no erythema, no discharge Discharge Plan - Follow Up Plan Condition: FAIR Disposition: REHAB FACILITY/REHAB UNIT Patient education suggested?: Yes Instructions: Influenza Virus Vaccine (By injection), Pneumococcal Polyvalent Vaccine (By injection), Diverticulitis (DC), Ultrasound (GEN), Bowel Obstruction (DC) Additional Instructions: Discharge Instructions You have been discharged from [facility]. You will be going to TCU. Your PMD will follow you there. Once discharged from TCU: Follow with GI outpatient Dr. Freitas. Please take medications as prescribed. Return to ED for evaluation of fever, chills, chest pain, SOB, abdominal pain, N /V, diarrhea, constipation, and urinary symptoms. Referrals: Nabor Nicole MD [Primary Care Provider] - Yordy Freitas MD [Staff Provider] -
== END 2017-06-28 18:00 | DRG 390 ==
LOC: ED 16:47 → ERH 22:43 → 5RNO 06-25 01:19
PROVIDERS: ADMIT Internal Medicine; ATTEND Internal Medicine
DX: K56.60 Unspecified intestinal obstruction (principal); E87.5 Hyperkalemia; E11.9 Type 2 diabetes mellitus without complications; I10 Essential (primary) hypertension; D64.9 Anemia, unspecified; Z96.652 Presence of left artificial knee joint; M19.90 Unspecified osteoarthritis, unspecified site; K44.9 Diaphragmatic hernia without obstruction or gangrene; D86.9 Sarcoidosis, unspecified; H26.9 Unspecified cataract; Z85.048 Personal history of other malignant neoplasm of rectum, rectosigmoid junction, and anus; Z79.84 Long term (current) use of oral hypoglycemic drugs; Z86.011 Personal history of benign neoplasm of the brain

== ENCOUNTER 2017-06-28 18:06 | Inpatient (IN) | payer OTHER ==
[2017-06-28 18:37] VITALS: BMI 33.6
[2017-06-28] MEDS ORDERED: Home Med 1 UNIT PO SCH (22:00)
[2017-06-28] MEDS: VITAMIN B2 PO SCH (22:33)
[2017-06-28] MEDS ORDERED: Pneumococcal 23-Valent Vaccine IM ONE (23:38)
[2017-06-29] MEDS: Insulin Lispro (humaLOG) MEDIUM Coverage SC SCH ×5 (02:52→22:09)
[2017-06-29] MEDS: Pantoprazole 40 mg EC Tab PO SCH (05:52)
[2017-06-29] MEDS ORDERED: Enoxaparin 40 mg Syringe SC SCH ×2 (06:00→10:00)
[2017-06-29 06:12] LABS: EOS # 0.1 (0.0-0.7); GRAN # 1.99 (1.4-6.5); GRAN % 46.1 % (50.0-68.0); LYMPH # 1.7 (1.2-3.4); LYMPH % 38.9 % (22.0-35.0); MEAN CELL VOLUME 82.5 fl (80.0-105.0); MEAN CORPUSCULAR HEMOGLOBIN 26.3 pg (25.0-35.0); MEAN CORPUSCULAR HGB CONC 31.9 g/dl (31.0-37.0); MEAN PLATELET VOLUME 10.2 fl (7.0-11.0); MONO # 0.5 (0.1-0.6); WHITE BLOOD COUNT 4.3 10^3/ul (4.5-11.0)
[2017-06-29 06:34] LABS: ALB/GLOB RATIO 1.2 (1.1-1.8); ALKALINE PHOSPHATASE 52 U/L (38-126); ALT/SGPT 40 U/L (7-56); AST/SGOT 46 U/L (14-36); BILIRUBIN,TOTAL 0.4 mg/dL (0.2-1.3); BLOOD UREA NITROGEN 11 mg/dL (7-21); CALCIUM 9.5 mg/dL (8.4-10.5); CARBON DIOXIDE 29 mmol/L (21-33); CHLORIDE 104 mmol/L (98-107); GFR AFRICAN-AMERICAN > 60; GLUCOSE,RANDOM 103 mg/dL (70-110); POTASSIUM 3.6 mmol/L (3.6-5.0); SODIUM 142 mmol/L (132-148); TOTAL PROTEIN 6.4 g/dL (5.8-8.3)
--- NOTE | 2017-06-29 08:03 | CP.PCM.HP ---
History of Present Illness - History of Present Illness History of Present Illness: Patient is a 89 year old female with a PMHX of diverticulitis, HTN, benign brain tumor, cataracts, DM, sarcoidosis, arthritis, falls who was admitted to the hospital for evaluation and treatment of abdominal pain. With the use of physical examinations, lab work, and imaging the patient was diagnosed with a small bowel obstruction and hyperkalemia. A CT of the abdomen was done showing a small hiatal hernia and a small bowel obstruction. During her hospital stay the patient was also seen by general surgery, Dr. Newell who advised no surgical intervention was needed. Patient was given a glycerin tablet and experienced multiple bowel movement/flatus and is tolerating her diet without N/ V indicating resolution of the small bowel obstruction. Patient experienced right upper extremity swelling secondary to a peripheral IV infiltration. Doppler ultrasound the right upper extremity was negative for DVT. Patient was determined to be medically stable for to discharge to the TCU. Patient denies fever, chills, chest pain, SOB, abdominal pain, N/V, diarrhea, constipation, and urinary symptoms. PMD: Dr. Nicole GI Physician- Dr. Mccarthy PMHx: diverticulitis, HTN, Benign brain tumor, cataracts, DM, sarcoidosis, arthritis, falls, SHx: hysterectomy, Left knee replacement, skin graft Allergies: NKDA Social: denies ETOH use, tobacco use, and illicit drug use Family hx- HTN Present on Admission - Present on Admission Any Indicators Present on Admission: No Review of Systems - Review of Systems Review of Systems: 12 point review of systems negative except as indicated in HPI. Past Patient History - Infectious Disease Hx of Infectious Diseases: None - Tetanus Immunizations Tetanus Immunization: Unknown - Past Social History Smoking Status: Never Smoked - CARDIAC Hx Hypercholesterolemia: Yes Hx Hypertension: Yes - PULMONARY Hx Respiratory Disorders: No Hx Asthma: No Hx Bronchitis: No Hx Chronic Obstructive Pulmonary Disease (COPD): No Hx Emphysema: No Hx Pneumonia: No Hx Respiratory Aspiration: No Hx Respiratory Tract Infection: No Hx Sleep Apnea: No Hx Tuberculosis: No - NEUROLOGICAL Hx Neurological Disorder: No Hx Alzheimer's Disease: No HX Cerebrovascular Accident: No Hx Dementia: No Hx Dizziness: No Hx Meningitis: No Hx Migraine: No Hx Parkinson's Disease: No Hx Seizures: No Hx Transient Ischemic Attacks (TIA): No - HEENT Hx HEENT Problems: No Hx Blind: No Hx Cataracts: Yes (left eye cattaract was removed) Hx Deafness: Yes Hx Difficulty Chewing: No Hx Epistaxis: No Hx Glaucoma: No Hx Macular Degeneration: No - RENAL Hx Chronic Kidney Disease: No Hx Dialysis: No Hx Kidney Stones: No Hx Neurogenic Bladder: No Hx Pyelonephritis: No Hx Renal (Kidney) Cancer: No Hx Renal Failure: No - ENDOCRINE/METABOLIC Hx Diabetes Mellitus Type 2: Yes - HEMATOLOGICAL/ONCOLOGICAL Hx Blood Disorders: No Hx AIDS: No Hx Anemia: No Hx Cancer: No Hx Chemotherapy: No Hx Cirrhosis: No Hx Hemophilia: No Hx Hepatitis A: No Hx Hepatitis B: No Hx Hepatitis C: No Hx Human Immunodeficiency Virus (HIV): No Hx Metastesis: No Hx Shingles: No Hx Sickle Cell Disease: No Hx Unexplained Bleeding: No - INTEGUMENTARY Hx Dermatological Problems: No Hx Basil Cell: No Hx Eczema: No Hx Melanoma: No Hx Psoriasis: No Hx Squamous Cell: No - MUSCULOSKELETAL/RHEUMATOLOGICAL Hx Falls: Yes - GASTROINTESTINAL Hx Gastrointestinal Disorders: Yes (sbo/rectal ca) - GENITOURINARY/GYNECOLOGICAL Hx Genitourinary Disorders: No Hx Reproductive Disorders: No - PSYCHIATRIC Hx Psychophysiologic Disorder: No Hx Substance Use: No - SURGICAL HISTORY Hx Hysterectomy: Yes Other/Comment: LEFT KNEE REPLACED WITH KNEE IMPLANT REMOVED,LARGE SCARRING, DISFIGURED LOOK.KELOID FORMED.SKIN GRAFT TO IT.RIGHT THIGH SKIN WAS TAKEN. - ANESTHESIA Hx Anesthesia: No Hx Anesthesia Reactions: No Hx Malignant Hyperthermia: No Meds Allergies/Adverse Reactions: Allergies Allergy/AdvReac Type Severity Reaction Status Date / Time No Known Allergies Allergy Verified 06/24/17 17:06 Physical Exam - Additional Findings Additional findings: - Constitutional Appears: Non-toxic, No Acute Distress - Head Exam Head Exam: ATRAUMATIC, NORMAL INSPECTION - Eye Exam Eye Exam: Normal appearance. absent: Scleral icterus - ENT Exam ENT Exam: Mucous Membranes Moist - Neck Exam Neck exam: Positive for: Normal Inspection. Negative for: Tenderness - Respiratory Exam Respiratory Exam: Clear to Auscultation Bilateral, NORMAL BREATHING PATTERN - Cardiovascular Exam Cardiovascular Exam: +S1, +S2 - GI/Abdominal Exam GI & Abdominal Exam: Soft. absent: Rebound, Rigid, Tenderness - Extremities Exam Extremities exam: Positive for: pedal pulses present. Negative for: tenderness - Neurological Exam Neurological exam: CN II-XII Intact, Oriented x3 - Psychiatric Exam Psychiatric exam: Normal Affect, Normal Mood - Skin Additional comments: medial left lower extremity skin lesion noted, no tenderness to palplation, no erythema, no discharge Results - Vital Signs Recent Vital Signs: Last Vital Signs Temp 98 F 06/28/17 23:21 Pulse 113 H 06/28/17 23:21 Resp 18 06/28/17 23:21 BP 160/74 H 06/29/17 05:52 Pulse Ox 94 L 06/28/17 18:14 - Labs Result Diagrams: 06/29/17 06:04 06/29/17 06:04 Labs: Laboratory Results - last 24 hr 06/28/17 06/29/17 06/29/17 22:38 06:04 06:04 WBC 4.3 L RBC 3.88 Hgb 10.2 L Hct 32.0 L MCV 82.5 MCH 26.3 MCHC 31.9 RDW 17.0 H Plt Count 174 MPV 10.2 Gran % 46.1 L Lymph % (Auto) 38.9 H [place] % (Auto) 12.0 H Eos % (Auto) 3.0 Baso % (Auto) 0.0 Gran # 1.99 Lymph # 1.7 [place] # 0.5 Eos # 0.1 Baso # 0.00 Sodium 142 Potassium 3.6 Chloride 104 Carbon Dioxide 29 Anion Gap 13 BUN 11 Creatinine 0.9 Est GFR ( Amer) > 60 Est GFR (Non-Af Amer) 59 POC Glucose (mg/dL) 169 H Random Glucose 103 Calcium 9.5 Total Bilirubin 0.4 AST 46 H D ALT 40 Alkaline Phosphatase 52 Total Protein 6.4 Albumin 3.5 Globulin 2.9 Albumin/Globulin Ratio 1.2 Assessment & Plan - Assessment and Plan (Free Text) Assessment: Assessment: 89 yo female with pmh of diverticulitis, HTN, benign brain tumor, cataracts, DM , sarcoidosis, arthritis, falls who was admitted for evaluation and treatment of abdominal pain. Plan: Abdominal Pain; SBO - CT of abdomen/pelvis reviewed: 1. Small hiatal hernia. Small amount of contrast within the mid and distal esophagus compatible with reflux or vomiting. 2. There is small bowel obstruction, with proximal loops measuring up to 4 CM and distal loops are decompressed 2 as little as a millimeters. Transition zone appears to be at the mid abdomen. - patient experiencing flatus-- awaiting additional bowel movement after given glycerin suppository - advance diet- tolerating diet - no need for IVF at this time - no surgical intervention required at this time - resolved Right Arm Swelling - PIV inviltration vs dvt - US of right UE negative for DVT - resolved Hyperkalemia - 6.1 noted on admission, given insulin/dextrose in ED and kayexylate yesterday - resolved, decreased to 3.6 HTN - BP mildly elevated - C/w amlodipine 5 mg daily and concor, will consider hydralazine prn if BP remains elevated in TCU - Will continue to monitor HR and BP in TCU DM - Hold home antidiabetic medications - ISS - Accuchecks ACHS Anemia - noted and Hgb/Hct are at baseline Abnormal UA: - positive for proteins, trace leukocyte esterase, trace blood - no urinary symptoms - follow up urine cultures - E.coli, patient on cipro 500 BID - c/w cipro PPX - protonixs po - lovenox Case discussed with and plan approved by attending physician, Dr. Nicole.
[2017-06-29] MEDS ORDERED: CONCOR PO SCH (10:00)
[2017-06-29] MEDS: Magnesium Oxide 400 mg Tab UD PO SCH ×2 (10:22→17:01)
[2017-06-29] MEDS: VITAMIN B2 PO SCH (10:40)
[2017-06-29] MEDS: VITAMIN B PO SCH ×2 (17:07→21:47)
[2017-06-30] MEDS: Pantoprazole 40 mg EC Tab PO SCH (06:18)
[2017-06-30] MEDS: Insulin Lispro (humaLOG) MEDIUM Coverage SC SCH ×4 (06:34→22:01)
[2017-06-30] MEDS: Enoxaparin 30 mg Syringe SC SCH (06:36)
[2017-06-30] MEDS: CONCOR PO SCH (11:10)
[2017-06-30] MEDS: VITAMIN B PO SCH ×4 (11:11→21:23)
[2017-06-30] MEDS: Magnesium Oxide 400 mg Tab UD PO SCH ×2 (11:12→17:51)
[2017-06-30] MEDS ORDERED: Oxycodone/Acetaminophen 5/325 mg Tab PO ONE (11:17)
[2017-07-01] MEDS: Enoxaparin 30 mg Syringe SC SCH (05:36)
[2017-07-01] MEDS: Pantoprazole 40 mg EC Tab PO SCH (05:37)
[2017-07-01] MEDS: Insulin Lispro (humaLOG) MEDIUM Coverage SC SCH ×4 (06:39→22:15)
[2017-07-01] MEDS: VITAMIN B PO SCH ×4 (08:45→22:15)
[2017-07-01] MEDS: CONCOR PO SCH ×2 (08:45→10:11)
[2017-07-01] MEDS: Magnesium Oxide 400 mg Tab UD PO SCH ×2 (08:46→17:32)
--- NOTE | 2017-07-01 12:05 | CP.PCM.PN ---
Subjective - Date & Time of Evaluation Date of Evaluation: 07/01/17 Time of Evaluation: 10:00 - Subjective Subjective: Dr Corey Francis Pt was seen and examined at bedside. Pt is OOB, and is tolerating PT well. Pt is eating well and moving bowels and bladder regularly. No acute complaints at this time. Pt denied fever, chill, sob, chest pains, n/v/d/c or urinary symptoms. No acute or adverse events overnight as per nursing staff. Objective - Vital Signs/Intake and Output Vital Signs (last 24 hours): Temp Pulse Resp BP Pulse Ox 98.5 F 61 16 129/56 L 92 L 07/01/17 05:54 07/01/17 10:00 07/01/17 05:54 07/01/17 10:00 07/01/17 05:54 Intake and Output: 07/01/17 07/01/17 06:59 18:59 Intake Total 360 Balance 360 - Medications Medications: Current Medications Acetaminophen (Tylenol 325mg Tab) 650 mg PO Q6H PRN; Protocol PRN Reason: Pain, moderate (4-7) Last Admin: 07/01/17 11:46 Dose: 650 mg Amlodipine Besylate (Norvasc) 5 mg PO DAILY CIPRIANO PRN Reason: Protocol Last Admin: 07/01/17 08:46 Dose: 5 mg Ciprofloxacin (Cipro) 500 mg PO Q12 CIPRIANO PRN Reason: Protocol Stop: 07/03/17 07:26 Last Admin: 07/01/17 10:10 Dose: Not Given Clonidine HCl (Catapres) 0.1 mg PO Q12H CIPRIANO PRN Reason: Protocol Last Admin: 07/01/17 05:36 Dose: 0.1 mg Diazepam (Valium) 5 mg PO DAILY CIPRIANO PRN Reason: Protocol Last Admin: 07/01/17 08:49 Dose: 5 mg Enoxaparin Sodium (Lovenox) 30 mg SC 0600 [facility] Last Admin: 07/01/17 05:36 Dose: 30 mg Home Med (Home Med) 1 unit PO DAILY CIPRIANO PRN Reason: Protocol Last Admin: 07/01/17 10:11 Dose: Not Given Home Med (Home Med) 1 unit PO QID CIPRIANO PRN Reason: Protocol Last Admin: 07/01/17 08:45 Dose: 1 unit Insulin Human Lispro (Humalog Med) 0 units SC ACHS CIPRIANO PRN Reason: Protocol Last Admin: 07/01/17 11:51 Dose: 1 units Magnesium Oxide (Mag-Ox) 400 mg PO BID CIPRIANO PRN Reason: Protocol Last Admin: 07/01/17 08:46 Dose: 400 mg Pantoprazole Sodium (Protonix Ec Tab) 40 mg PO 0600 CIPRIANO PRN Reason: Protocol Last Admin: 07/01/17 05:37 Dose: 40 mg Pentoxifylline (Pentoxil) 400 mg PO BID CIPRIANO PRN Reason: Protocol Last Admin: 07/01/17 08:48 Dose: 400 mg Pregabalin (Lyrica) 75 mg PO DAILY [facility] Last Admin: 07/01/17 08:49 Dose: 75 mg Sennosides (Senokot Tab) 8.6 mg PO DAILY CIPRIANO PRN Reason: Protocol Last Admin: 07/01/17 08:49 Dose: 8.6 mg Tramadol HCl (Ultram) 50 mg PO TID PRN; Protocol PRN Reason: Pain, moderate (4-7) Last Admin: 06/30/17 10:44 Dose: 50 mg - Labs Labs: 06/29/17 06:04 06/29/17 06:04 - Constitutional Appears: No Acute Distress - Head Exam Head Exam: ATRAUMATIC, NORMAL INSPECTION, NORMOCEPHALIC - Eye Exam Eye Exam: EOMI, Normal appearance, PERRL - ENT Exam ENT Exam: Mucous Membranes Moist, Normal Exam - Neck Exam Neck Exam: Full ROM, Normal Inspection. absent: Lymphadenopathy - Respiratory Exam Respiratory Exam: Clear to Ausculation Bilateral, NORMAL BREATHING PATTERN - Cardiovascular Exam Cardiovascular Exam: REGULAR RHYTHM, +S1, +S2. absent: Murmur - GI/Abdominal Exam GI & Abdominal Exam: Soft, Normal Bowel Sounds. absent: Tenderness - Extremities Exam Extremities Exam: Full ROM, Normal Capillary Refill, Normal Inspection. absent : Joint Swelling, Pedal Edema - Neurological Exam Neurological Exam: Alert, Awake, CN II-XII Intact, Normal Gait, Oriented x3 - Psychiatric Exam Psychiatric exam: Normal Affect, Normal Mood - Skin Skin Exam: Dry, Intact, Normal Color, Warm Assessment and Plan - Assessment and Plan (Free Text) Assessment: 89 F with PMHx of of diverticulitis, HTN, benign brain tumor, cataracts, DM, sarcoidosis, arthritis, and falls who was admitted for evaluation and treatment of abdominal pain. Abdominal Pain; SBO -Resolved CT of abdomen/pelvis reviewed: 1. Small hiatal hernia. Small amount of contrast within the mid and distal esophagus compatible with reflux or vomiting. 2. There is small bowel obstruction, with proximal loops measuring up to 4 CM and distal loops are decompressed 2 as little as a millimeters. Transition zone appears to be at the mid abdomen. - patient experiencing flatus-- awaiting additional bowel movement after given glycerin suppository - advance diet- tolerating diet - no need for IVF at this time - no surgical intervention required at this time - Fu with Outpatient colonoscopy Right Arm Swelling - Resolved - PIV inviltration vs dvt - US of right UE negative for DVT Hyperkalemia - Resolved, continue to monitor and adjust meds accordingly HTN - Stable - C/w amlodipine 5 mg daily and concor - Will continue to monitor HR and BP DM - Hold home antidiabetic medications - ISS - Accuchecks ACHS Anemia - noted and Hgb/Hct are at baseline Abnormal UA: - positive for proteins, trace leukocyte esterase, trace blood - follow up urine cultures - E.coli, patient on cipro 500 BID PPX - protonixs po - lovenox Seen Reviewed and discussed with attending
[2017-07-01] MEDS ORDERED: Oxycodone/Acetaminophen 5/325 mg Tab PO PRN (16:37)
[2017-07-02] MEDS: Enoxaparin 30 mg Syringe SC SCH (05:54)
[2017-07-02] MEDS: Pantoprazole 40 mg EC Tab PO SCH (05:55)
[2017-07-02] MEDS: Insulin Lispro (humaLOG) MEDIUM Coverage SC SCH ×4 (06:40→22:07)
[2017-07-02] MEDS: Magnesium Oxide 400 mg Tab UD PO SCH (09:18)
[2017-07-02] MEDS: CONCOR PO SCH (09:19)
[2017-07-02] MEDS: VITAMIN B PO SCH ×4 (09:23→22:07)
[2017-07-02] MEDS: POLYETHYLENE GLYCOL 3350 17 GM/Dose PACKET PO SCH (17:21)
[2017-07-03] MEDS: Enoxaparin 30 mg Syringe SC SCH (05:52)
[2017-07-03] MEDS: Pantoprazole 40 mg EC Tab PO SCH (05:52)
[2017-07-03] MEDS: Insulin Lispro (humaLOG) MEDIUM Coverage SC SCH ×4 (06:46→21:40)
[2017-07-03] MEDS: VITAMIN B PO SCH ×4 (09:17→21:39)
[2017-07-03] MEDS: Magnesium Oxide 400 mg Tab UD PO SCH ×2 (09:19→17:50)
[2017-07-03] MEDS: POLYETHYLENE GLYCOL 3350 17 GM/Dose PACKET PO SCH ×2 (09:21→17:52)
[2017-07-03] MEDS: CONCOR PO SCH (09:21)
[2017-07-03 09:39] LABS: HEMATOCRIT 33.5 % (36.0-48.0); MEAN CELL VOLUME 81.7 fl (80.0-105.0); MEAN CORPUSCULAR HEMOGLOBIN 26.6 pg (25.0-35.0); MEAN CORPUSCULAR HGB CONC 32.5 g/dl (31.0-37.0); MEAN PLATELET VOLUME 10.6 fl (7.0-11.0); RED CELL DISTRIBUTION WIDTH 16.7 % (11.5-14.5); WHITE BLOOD COUNT 4.1 10^3/ul (4.5-11.0)
[2017-07-03 09:49] LABS: ALB/GLOB RATIO 1.3 (1.1-1.8); BILIRUBIN,TOTAL 0.4 mg/dL (0.2-1.3); CALCIUM 10.2 mg/dL (8.4-10.5); MAGNESIUM 1.9 mg/dL (1.7-2.2); PHOSPHOROUS 3.5 mg/dL (2.5-4.5); POTASSIUM 4.6 mmol/L (3.6-5.0); TOTAL PROTEIN 6.9 g/dL (5.8-8.3)
--- NOTE | 2017-07-03 12:44 | CP.PCM.PN ---
Subjective - Date & Time of Evaluation Date of Evaluation: 07/03/17 Time of Evaluation: 06:30 - Subjective Subjective: Pt was seen and examined in chair. Pt states she is eating well and moving bowels and bladder regularly. Pt denied fever, chill, sob, chest pains, n/v/d/c or urinary symptoms or any other complaints. No acute events overnight. Swelling noted in the lower extremities, patient states has been stable. Objective - Vital Signs/Intake and Output Vital Signs (last 24 hours): Temp Pulse Resp BP Pulse Ox 98.3 F 81 20 145/60 95 07/03/17 10:00 07/03/17 10:00 07/03/17 10:00 07/03/17 10:00 07/03/17 10:00 - Medications Medications: Current Medications Acetaminophen (Tylenol 325mg Tab) 650 mg PO Q6H PRN; Protocol PRN Reason: Pain, moderate (4-7) Last Admin: 07/02/17 09:14 Dose: 650 mg Amlodipine Besylate (Norvasc) 5 mg PO DAILY [facility] PRN Reason: Protocol Last Admin: 07/03/17 09:19 Dose: 5 mg Clonidine HCl (Catapres) 0.1 mg PO Q12H [facility] PRN Reason: Protocol Last Admin: 07/03/17 05:51 Dose: 0.1 mg Diazepam (Valium) 5 mg PO DAILY [facility] PRN Reason: Protocol Last Admin: 07/03/17 09:38 Dose: 5 mg Enoxaparin Sodium (Lovenox) 30 mg SC 0600 [facility] Last Admin: 07/03/17 05:52 Dose: 30 mg Home Med (Home Med) 1 unit PO DAILY [facility] PRN Reason: Protocol Last Admin: 07/03/17 09:21 Dose: 1 unit Home Med (Home Med) 1 unit PO QID [facility] PRN Reason: Protocol Last Admin: 07/03/17 09:17 Dose: 1 unit Insulin Human Lispro (Humalog Med) 0 units SC ACHS [facility] PRN Reason: Protocol Last Admin: 07/03/17 12:10 Dose: Not Given Magnesium Oxide (Mag-Ox) 400 mg PO BID [facility] PRN Reason: Protocol Last Admin: 07/03/17 09:19 Dose: 400 mg Oxycodone/Acetaminophen (Percocet 5/325 Mg Tab) 1 tab PO Q6H PRN PRN Reason: Headache Stop: 07/04/17 16:38 Last Admin: 07/01/17 17:25 Dose: 1 tab Pantoprazole Sodium (Protonix Ec Tab) 40 mg PO 0600 [facility] PRN Reason: Protocol Last Admin: 07/03/17 05:52 Dose: 40 mg Pentoxifylline (Pentoxil) 400 mg PO BID [facility] PRN Reason: Protocol Last Admin: 07/03/17 09:20 Dose: 400 mg Polyethylene Glycol (Miralax) 17 gm PO BID [facility] PRN Reason: Protocol Last Admin: 07/03/17 09:21 Dose: 17 gm Pregabalin (Lyrica) 75 mg PO DAILY [facility] Last Admin: 07/03/17 09:38 Dose: 75 mg Sennosides (Senokot Tab) 8.6 mg PO DAILY [facility] PRN Reason: Protocol Last Admin: 07/03/17 09:20 Dose: 8.6 mg Tramadol HCl (Ultram) 50 mg PO TID PRN; Protocol PRN Reason: Pain, moderate (4-7) Last Admin: 07/01/17 14:05 Dose: 50 mg - Labs Labs: 07/03/17 09:25 07/03/17 09:25 - Constitutional Appears: Non-toxic, No Acute Distress - Head Exam Head Exam: ATRAUMATIC, NORMAL INSPECTION, NORMOCEPHALIC - Eye Exam Eye Exam: EOMI, Normal appearance, PERRL - ENT Exam ENT Exam: Normal Exam - Neck Exam Neck Exam: Normal Inspection. absent: Lymphadenopathy - Respiratory Exam Respiratory Exam: Clear to Ausculation Bilateral, NORMAL BREATHING PATTERN - Cardiovascular Exam Cardiovascular Exam: REGULAR RHYTHM, +S1, +S2 - GI/Abdominal Exam GI & Abdominal Exam: Normal Bowel Sounds - Extremities Exam Additional comments: lower extremity edema - Neurological Exam Neurological Exam: Awake, CN II-XII Intact, Oriented x3 - Psychiatric Exam Psychiatric exam: Normal Mood - Skin Skin Exam: Dry, Normal Color, Warm Assessment and Plan - Assessment and Plan (Free Text) Assessment: 89 F with PMHx of of diverticulitis, HTN, benign brain tumor, cataracts, DM, sarcoidosis, arthritis, and falls who was admitted for evaluation and treatment of abdominal pain. Plan: Abdominal Pain; SBO -Resolved CT of abdomen/pelvis reviewed: 1. Small hiatal hernia. Small amount of contrast within the mid and distal esophagus compatible with reflux or vomiting. 2. There is small bowel obstruction, with proximal loops measuring up to 4 CM and distal loops are decompressed 2 as little as a millimeters. Transition zone appears to be at the mid abdomen. - patient experiencing flatus-- awaiting additional bowel movement after given glycerin suppository - advance diet- tolerating diet - no need for IVF at this time - no surgical intervention required at this time - Fu with Outpatient colonoscopy Right Arm Swelling - Resolved - PIV infiltration vs dvt - US of right UE negative for DVT Hyperkalemia - Resolved, continue to monitor and adjust meds accordingly -K is 4.6 HTN - Stable - C/w amlodipine 5 mg daily and concor - Will continue to monitor HR and BP DM - Hold home antidiabetic medications - ISS - Accuchecks ACHS Anemia -noted and Hgb/Hct are at baseline -Hgb 10.9 Hct 33.5, continue to monitor Abnormal UA: - positive for proteins, trace leukocyte esterase, trace blood - Patient not taking Cipro currently -Urine culture ordered Constipation-likely secondary to pain medication -lactulose ordered and given PPX - protonixs po - lovenox Seen Reviewed and discussed with attending
[2017-07-04] MEDS: Enoxaparin 30 mg Syringe SC SCH (05:11)
[2017-07-04] MEDS: Pantoprazole 40 mg EC Tab PO SCH (05:11)
[2017-07-04] MEDS: Insulin Lispro (humaLOG) MEDIUM Coverage SC SCH ×4 (08:12→22:30)
[2017-07-04] MEDS: POLYETHYLENE GLYCOL 3350 17 GM/Dose PACKET PO SCH ×2 (11:00→18:00)
[2017-07-04] MEDS: Magnesium Oxide 400 mg Tab UD PO SCH ×2 (11:00→17:56)
[2017-07-04] MEDS: VITAMIN B PO SCH ×4 (11:00→22:26)
[2017-07-04] MEDS: CONCOR PO SCH (11:00)
[2017-07-05] MEDS: Enoxaparin 30 mg Syringe SC SCH (05:26)
[2017-07-05] MEDS: Pantoprazole 40 mg EC Tab PO SCH (05:28)
[2017-07-05 05:56] LABS: EOS # 0.1 (0.0-0.7); EOS % 3.1 % (1.5-5.0); GRAN # 1.43 (1.4-6.5); HEMATOCRIT 31.8 % (36.0-48.0); LYMPH # 1.8 (1.2-3.4); LYMPH % 46.5 % (22.0-35.0); MEAN CELL VOLUME 82.4 fl (80.0-105.0); MEAN CORPUSCULAR HEMOGLOBIN 25.6 pg (25.0-35.0); MEAN CORPUSCULAR HGB CONC 31.1 g/dl (31.0-37.0); MEAN PLATELET VOLUME 10.2 fl (7.0-11.0); MONO # 0.5 (0.1-0.6); MONO % 13.4 % (1.0-6.0); RED CELL DISTRIBUTION WIDTH 16.8 % (11.5-14.5); WHITE BLOOD COUNT 3.9 10^3/ul (4.5-11.0)
[2017-07-05 06:36] LABS: ALB/GLOB RATIO 1.1 (1.1-1.8); BILIRUBIN,TOTAL 0.5 mg/dL (0.2-1.3); CALCIUM 10.1 mg/dL (8.4-10.5); POTASSIUM 4.5 mmol/L (3.6-5.0); TOTAL PROTEIN 6.9 g/dL (5.8-8.3)
[2017-07-05] MEDS: Insulin Lispro (humaLOG) MEDIUM Coverage SC SCH ×4 (07:03→21:37)
--- NOTE | 2017-07-05 09:31 | CP.PCM.PN ---
<Leif Morris - Last Filed: 07/05/17 09:31> Subjective - Date & Time of Evaluation Date of Evaluation: 07/05/17 Time of Evaluation: 09:28 - Subjective Subjective: GI: Dr. Ruiz Pt seen and examined. Resting comfortably in bed. No abd pain. No N/V. +BM this AM, normal. Objective - Vital Signs/Intake and Output Vital Signs (last 24 hours): Temp Pulse Resp BP Pulse Ox 98.1 F 74 20 112/60 95 07/05/17 06:00 07/05/17 06:00 07/05/17 06:00 07/05/17 06:00 07/05/17 06:00 Intake and Output: 07/05/17 07/05/17 06:59 18:59 Intake Total 240 Output Total 600 Balance -360 - Medications Medications: Current Medications Acetaminophen (Tylenol 325mg Tab) 650 mg PO Q6H PRN; Protocol PRN Reason: Pain, moderate (4-7) Last Admin: 07/04/17 09:00 Dose: 650 mg Amlodipine Besylate (Norvasc) 5 mg PO DAILY [facility] PRN Reason: Protocol Last Admin: 07/04/17 11:00 Dose: 5 mg Clonidine HCl (Catapres) 0.1 mg PO Q12H [facility] PRN Reason: Protocol Last Admin: 07/05/17 05:19 Dose: 0.1 mg Diazepam (Valium) 5 mg PO DAILY [facility] PRN Reason: Protocol Last Admin: 07/04/17 11:00 Dose: 5 mg Enoxaparin Sodium (Lovenox) 30 mg SC 0600 [facility] Last Admin: 07/05/17 05:26 Dose: 30 mg Home Med (Home Med) 1 unit PO DAILY [facility] PRN Reason: Protocol Last Admin: 07/04/17 11:00 Dose: 1 unit Home Med (Home Med) 1 unit PO QID [facility] PRN Reason: Protocol Last Admin: 07/04/17 22:26 Dose: 1 unit Insulin Human Lispro (Humalog Med) 0 units SC ACHS [facility] PRN Reason: Protocol Last Admin: 07/05/17 07:03 Dose: Not Given Lactulose (Enulose) 30 gm PO BID [facility] Last Admin: 07/04/17 17:58 Dose: 30 gm Magnesium Oxide (Mag-Ox) 400 mg PO BID [facility] PRN Reason: Protocol Last Admin: 07/04/17 17:56 Dose: 400 mg Ondansetron HCl (Zofran Tab) 4 mg PO Q8H PRN PRN Reason: Nausea/Vomiting Last Admin: 07/04/17 16:46 Dose: 4 mg Pantoprazole Sodium (Protonix Ec Tab) 40 mg PO 0600 [facility] PRN Reason: Protocol Last Admin: 07/05/17 05:28 Dose: 40 mg Pentoxifylline (Pentoxil) 400 mg PO BID [facility] PRN Reason: Protocol Last Admin: 07/04/17 17:55 Dose: 400 mg Polyethylene Glycol (Miralax) 17 gm PO BID [facility] PRN Reason: Protocol Last Admin: 07/04/17 18:00 Dose: 17 gm Pregabalin (Lyrica) 75 mg PO DAILY [facility] Last Admin: 07/04/17 11:00 Dose: 75 mg Sennosides (Senokot Tab) 8.6 mg PO DAILY [facility] PRN Reason: Protocol Last Admin: 07/04/17 11:00 Dose: 8.6 mg Tramadol HCl (Ultram) 50 mg PO TID PRN; Protocol PRN Reason: Pain, moderate (4-7) Last Admin: 07/05/17 05:27 Dose: 50 mg - Labs Labs: 07/05/17 05:10 07/05/17 05:10 - Constitutional Appears: Non-toxic, No Acute Distress - Head Exam Head Exam: ATRAUMATIC, NORMOCEPHALIC - Eye Exam Eye Exam: EOMI. absent: Scleral icterus - ENT Exam ENT Exam: Mucous Membranes Moist, Normal External Ear Exam - Neck Exam Neck Exam: Full ROM - Respiratory Exam Respiratory Exam: NORMAL BREATHING PATTERN. absent: Accessory Muscle Use, Respiratory Distress - GI/Abdominal Exam GI & Abdominal Exam: Soft. absent: Distended, Firm, Guarding, Rigid, Tenderness , Rebound - Extremities Exam Extremities Exam: absent: Calf Tenderness, Pedal Edema - Neurological Exam Neurological Exam: Alert, Awake, Oriented x3 - Psychiatric Exam Psychiatric exam: Normal Affect, Normal Mood Assessment and Plan - Assessment and Plan (Free Text) Assessment: 89F w. hx of sbo, resolved -for colonoscopy on Monday -hold lactulose -c/w miralax -clear liquid diet starting on -d/w attending Zemaitis PGY3 <Sara,Kovil V - Last Filed: 07/05/17 23:28> Objective - Vital Signs/Intake and Output Vital Signs (last 24 hours): Temp Pulse Resp BP Pulse Ox 97.7 F 63 18 117/60 96 07/05/17 17:33 07/05/17 18:33 07/05/17 17:33 07/05/17 18:33 07/05/17 17:33 - Medications Medications: Current Medications Acetaminophen (Tylenol 325mg Tab) 650 mg PO Q6H PRN; Protocol PRN Reason: Pain, moderate (4-7) Last Admin: 07/04/17 09:00 Dose: 650 mg Amlodipine Besylate (Norvasc) 5 mg PO DAILY [facility] PRN Reason: Protocol Last Admin: 07/05/17 09:53 Dose: 5 mg Clonidine HCl (Catapres) 0.1 mg PO Q12H [facility] PRN Reason: Protocol Last Admin: 07/05/17 18:33 Dose: 0.1 mg Diazepam (Valium) 5 mg PO DAILY [facility] PRN Reason: Protocol Last Admin: 07/05/17 09:34 Dose: 5 mg Enoxaparin Sodium (Lovenox) 30 mg SC 0600 [facility] Last Admin: 07/05/17 05:26 Dose: 30 mg Home Med (Home Med) 1 unit PO DAILY [facility] PRN Reason: Protocol Last Admin: 07/05/17 09:52 Dose: 1 unit Home Med (Home Med) 1 unit PO QID [facility] PRN Reason: Protocol Last Admin: 07/05/17 21:37 Dose: 1 unit Insulin Human Lispro (Humalog Med) 0 units SC ACHS [facility] PRN Reason: Protocol Last Admin: 07/05/17 21:37 Dose: Not Given Magnesium Oxide (Mag-Ox) 400 mg PO BID [facility] PRN Reason: Protocol Last Admin: 07/05/17 18:32 Dose: 400 mg Ondansetron HCl (Zofran Tab) 4 mg PO Q8H PRN PRN Reason: Nausea/Vomiting Last Admin: 07/04/17 16:46 Dose: 4 mg Pantoprazole Sodium (Protonix Ec Tab) 40 mg PO 0600 [facility] PRN Reason: Protocol Last Admin: 07/05/17 05:28 Dose: 40 mg Polyethylene Glycol (Miralax) 17 gm PO BID [facility] PRN Reason: Protocol Last Admin: 07/05/17 18:31 Dose: 17 gm Polyethylene Glycol/Electrolytes (Golytely) 4,000 ml PO ONCE ONE Stop: 07/06/17 14:01 Pregabalin (Lyrica) 75 mg PO DAILY [facility] Last Admin: 07/05/17 09:34 Dose: 75 mg Sennosides (Senokot Tab) 8.6 mg PO DAILY [facility] PRN Reason: Protocol Last Admin: 07/05/17 09:55 Dose: 8.6 mg Tramadol HCl (Ultram) 50 mg PO TID PRN; Protocol PRN Reason: Pain, moderate (4-7) Last Admin: 07/05/17 05:27 Dose: 50 mg - Labs Labs: 07/05/17 05:10 07/05/17 05:10 Attending/Attestation - Attestation I have personally seen and examined this patient.: Yes I have fully participated in the care of the patient.: Yes I have reviewed all pertinent clinical information, including history, physical exam and plan: Yes Notes (Text): This is an addendum to GI progress report dictated by Resident.The patient was seen and examined earlier. Medical records, lab studies, imagings were reviewed. Last 24 hours events reviewed. Agreed with the above treatment plan as outlined in Resident's notes the with the addition of the following o/e abdomen softly distended. Scheduled for colonoscopy on Monday AM Bowel prep tomorrow dw patient 07/05/17 23:26
[2017-07-05] MEDS: VITAMIN B PO SCH ×4 (09:41→21:37)
[2017-07-05] MEDS: Magnesium Oxide 400 mg Tab UD PO SCH ×2 (09:41→18:32)
[2017-07-05] MEDS: CONCOR PO SCH (09:52)
[2017-07-05] MEDS: POLYETHYLENE GLYCOL 3350 17 GM/Dose PACKET PO SCH ×2 (09:55→18:31)
--- NOTE | 2017-07-05 11:05 | CP.PCM.PN ---
Subjective - Date & Time of Evaluation Date of Evaluation: 07/05/17 Time of Evaluation: 06:00 - Subjective Subjective: Pt was seen and examined in chair. Pt states she is eating well and moving bowels and bladder regularly and normally. Pt denies fever, chill, sob, chest pains, n/v/d/c or urinary symptoms or any other complaints. No acute events overnight. She also states she is tolerating the exercise well and feels it is helping her. Objective - Vital Signs/Intake and Output Vital Signs (last 24 hours): Temp Pulse Resp BP Pulse Ox 98.1 F 68 20 104/60 95 07/05/17 06:00 07/05/17 09:53 07/05/17 06:00 07/05/17 09:53 07/05/17 06:00 Intake and Output: 07/05/17 07/05/17 06:59 18:59 Intake Total 240 Output Total 600 Balance -360 - Medications Medications: Current Medications Acetaminophen (Tylenol 325mg Tab) 650 mg PO Q6H PRN; Protocol PRN Reason: Pain, moderate (4-7) Last Admin: 07/04/17 09:00 Dose: 650 mg Amlodipine Besylate (Norvasc) 5 mg PO DAILY [facility] PRN Reason: Protocol Last Admin: 07/05/17 09:53 Dose: 5 mg Clonidine HCl (Catapres) 0.1 mg PO Q12H [facility] PRN Reason: Protocol Last Admin: 07/05/17 05:19 Dose: 0.1 mg Diazepam (Valium) 5 mg PO DAILY [facility] PRN Reason: Protocol Last Admin: 07/05/17 09:34 Dose: 5 mg Enoxaparin Sodium (Lovenox) 30 mg SC 0600 [facility] Last Admin: 07/05/17 05:26 Dose: 30 mg Home Med (Home Med) 1 unit PO DAILY [facility] PRN Reason: Protocol Last Admin: 07/05/17 09:52 Dose: 1 unit Home Med (Home Med) 1 unit PO QID [facility] PRN Reason: Protocol Last Admin: 07/05/17 09:41 Dose: 1 unit Insulin Human Lispro (Humalog Med) 0 units SC ACHS [facility] PRN Reason: Protocol Last Admin: 07/05/17 07:03 Dose: Not Given Magnesium Oxide (Mag-Ox) 400 mg PO BID [facility] PRN Reason: Protocol Last Admin: 07/05/17 09:41 Dose: 400 mg Ondansetron HCl (Zofran Tab) 4 mg PO Q8H PRN PRN Reason: Nausea/Vomiting Last Admin: 07/04/17 16:46 Dose: 4 mg Pantoprazole Sodium (Protonix Ec Tab) 40 mg PO 0600 [facility] PRN Reason: Protocol Last Admin: 07/05/17 05:28 Dose: 40 mg Polyethylene Glycol (Miralax) 17 gm PO BID [facility] PRN Reason: Protocol Last Admin: 07/05/17 09:55 Dose: 17 gm Pregabalin (Lyrica) 75 mg PO DAILY [facility] Last Admin: 07/05/17 09:34 Dose: 75 mg Sennosides (Senokot Tab) 8.6 mg PO DAILY [facility] PRN Reason: Protocol Last Admin: 07/05/17 09:55 Dose: 8.6 mg Tramadol HCl (Ultram) 50 mg PO TID PRN; Protocol PRN Reason: Pain, moderate (4-7) Last Admin: 07/05/17 05:27 Dose: 50 mg - Labs Labs: 07/05/17 05:10 07/05/17 05:10 - Constitutional Appears: No Acute Distress - Head Exam Head Exam: ATRAUMATIC, NORMAL INSPECTION, NORMOCEPHALIC - Eye Exam Eye Exam: Normal appearance - ENT Exam ENT Exam: Mucous Membranes Moist - Neck Exam Neck Exam: Full ROM. absent: Lymphadenopathy - Respiratory Exam Respiratory Exam: Clear to Ausculation Bilateral, NORMAL BREATHING PATTERN - Cardiovascular Exam Cardiovascular Exam: REGULAR RHYTHM, +S1, +S2. absent: Murmur - GI/Abdominal Exam GI & Abdominal Exam: Normal Bowel Sounds Additional comments: negative grewal sign - Extremities Exam Extremities Exam: Pedal Edema - Neurological Exam Neurological Exam: Alert, Awake, Oriented x3 - Psychiatric Exam Psychiatric exam: Normal Mood Assessment and Plan - Assessment and Plan (Free Text) Assessment: 89 F with PMHx of of diverticulitis, HTN, benign brain tumor, cataracts, DM, sarcoidosis, arthritis, and falls who was admitted for evaluation and treatment of abdominal pain. Plan: Abdominal Pain; SBO -Resolved CT of abdomen/pelvis reviewed: 1. Small hiatal hernia. Small amount of contrast within the mid and distal esophagus compatible with reflux or vomiting. 2. There is small bowel obstruction, with proximal loops measuring up to 4 CM and distal loops are decompressed 2 as little as a millimeters. Transition zone appears to be at the mid abdomen. - patient experiencing flatus-- awaiting additional bowel movement after given glycerin suppository - advance diet- tolerating diet - no need for IVF at this time - no surgical intervention required at this time - Will get colonoscopy tomorrow, administer go lytely solution sometime later on in the day depending on timing og colonoscopy tomorrow with Sara. Right Arm Swelling - Resolved - PIV infiltration vs dvt - US of right UE negative for DVT Hyperkalemia -Resolved, continue to monitor and adjust meds accordingly -K is 4.5 HTN - Stable - C/w amlodipine 5 mg daily and concor - Will continue to monitor HR and BP DM - Hold home antidiabetic medications - ISS - Accuchecks ACHS Anemia -Hgb 9.9 Hct 31.8, continue to monitor Abnormal UA: - positive for proteins, trace leukocyte esterase, trace blood - Patient not taking Cipro currently - follow up urine culture Constipation-resolved -lactulose was given PPX - protonixs po - lovenox Seen Reviewed and discussed with attending
[2017-07-06 05:40] LABS: EOS # 0.1 (0.0-0.7); EOS % 3.1 % (1.5-5.0); GRAN # 1.51 (1.4-6.5); GRAN % 39.5 % (50.0-68.0); HEMATOCRIT 31.7 % (36.0-48.0); LYMPH # 1.8 (1.2-3.4); LYMPH % 46.2 % (22.0-35.0); MEAN CELL VOLUME 82.8 fl (80.0-105.0); MEAN CORPUSCULAR HEMOGLOBIN 25.8 pg (25.0-35.0); MEAN CORPUSCULAR HGB CONC 31.2 g/dl (31.0-37.0); MEAN PLATELET VOLUME 10.4 fl (7.0-11.0); MONO # 0.4 (0.1-0.6); MONO % 11.2 % (1.0-6.0); RED CELL DISTRIBUTION WIDTH 16.9 % (11.5-14.5); WHITE BLOOD COUNT 3.8 10^3/ul (4.5-11.0)
[2017-07-06] MEDS: Enoxaparin 30 mg Syringe SC SCH (05:49)
[2017-07-06] MEDS: Pantoprazole 40 mg EC Tab PO SCH (05:49)
[2017-07-06 06:29] LABS: ALB/GLOB RATIO 1.1 (1.1-1.8); BILIRUBIN,TOTAL 0.4 mg/dL (0.2-1.3); CALCIUM 9.5 mg/dL (8.4-10.5); POTASSIUM 4.5 mmol/L (3.6-5.0); TOTAL PROTEIN 6.4 g/dL (5.8-8.3)
[2017-07-06] MEDS: Insulin Lispro (humaLOG) MEDIUM Coverage SC SCH ×3 (06:29→16:53)
[2017-07-06] MEDS: VITAMIN B PO SCH ×4 (10:31→21:31)
[2017-07-06] MEDS: Magnesium Oxide 400 mg Tab UD PO SCH ×2 (10:34→17:52)
[2017-07-06] MEDS: CONCOR PO SCH (10:36)
[2017-07-06] MEDS: POLYETHYLENE GLYCOL 3350 17 GM/Dose PACKET PO SCH ×2 (10:36→17:54)
--- NOTE | 2017-07-06 13:42 | CP.PCM.PN ---
<Vandana Fowler - Last Filed: 07/06/17 13:40> Subjective - Date & Time of Evaluation Date of Evaluation: 07/06/17 Time of Evaluation: 09:50 - Subjective Subjective: Seen and examined at the bedside earlier today, the chart was reviewed. Patient with no new complaints. On clear liquid diet in preparation for colonoscopy tomorrow. No acute overnight events reported. Daughter at bedside. Objective - Vital Signs/Intake and Output Vital Signs (last 24 hours): Temp Pulse Resp BP Pulse Ox 98.2 F 66 20 137/54 L 93 L 07/06/17 10:12 07/06/17 10:34 07/06/17 10:12 07/06/17 10:34 07/06/17 10:12 - Medications Medications: Current Medications Acetaminophen (Tylenol 325mg Tab) 650 mg PO Q6H PRN; Protocol PRN Reason: Pain, moderate (4-7) Last Admin: 07/04/17 09:00 Dose: 650 mg Amlodipine Besylate (Norvasc) 5 mg PO DAILY [facility] PRN Reason: Protocol Last Admin: 07/06/17 10:34 Dose: 5 mg Clonidine HCl (Catapres) 0.1 mg PO Q12H [facility] PRN Reason: Protocol Last Admin: 07/06/17 05:48 Dose: Not Given Diazepam (Valium) 5 mg PO DAILY [facility] PRN Reason: Protocol Last Admin: 07/06/17 10:36 Dose: 5 mg Enoxaparin Sodium (Lovenox) 30 mg SC 0600 [facility] Last Admin: 07/06/17 05:49 Dose: 30 mg Home Med (Home Med) 1 unit PO DAILY [facility] PRN Reason: Protocol Last Admin: 07/06/17 10:36 Dose: 1 unit Home Med (Home Med) 1 unit PO QID [facility] PRN Reason: Protocol Last Admin: 07/06/17 10:31 Dose: 1 unit Insulin Human Lispro (Humalog Med) 0 units SC ACHS [facility] PRN Reason: Protocol Last Admin: 07/06/17 12:01 Dose: Not Given Magnesium Oxide (Mag-Ox) 400 mg PO BID [facility] PRN Reason: Protocol Last Admin: 07/06/17 10:34 Dose: 400 mg Ondansetron HCl (Zofran Tab) 4 mg PO Q8H PRN PRN Reason: Nausea/Vomiting Last Admin: 07/04/17 16:46 Dose: 4 mg Pantoprazole Sodium (Protonix Ec Tab) 40 mg PO 0600 [facility] PRN Reason: Protocol Last Admin: 07/06/17 05:49 Dose: 40 mg Polyethylene Glycol (Miralax) 17 gm PO BID [facility] PRN Reason: Protocol Last Admin: 07/06/17 10:36 Dose: 17 gm Polyethylene Glycol/Electrolytes (Golytely) 4,000 ml PO ONCE ONE Stop: 07/06/17 14:01 Pregabalin (Lyrica) 75 mg PO DAILY [facility] Last Admin: 07/06/17 10:33 Dose: 75 mg Sennosides (Senokot Tab) 8.6 mg PO DAILY [facility] PRN Reason: Protocol Last Admin: 07/06/17 10:36 Dose: 8.6 mg Tramadol HCl (Ultram) 50 mg PO TID PRN; Protocol PRN Reason: Pain, moderate (4-7) Last Admin: 07/05/17 05:27 Dose: 50 mg - Labs Labs: 07/06/17 05:20 07/06/17 05:20 - Constitutional Appears: No Acute Distress - Head Exam Head Exam: NORMOCEPHALIC - Eye Exam Eye Exam: Normal appearance. absent: Scleral icterus - ENT Exam ENT Exam: Mucous Membranes Moist - Neck Exam Neck Exam: Normal Inspection - Respiratory Exam Respiratory Exam: NORMAL BREATHING PATTERN. absent: Respiratory Distress - Cardiovascular Exam Cardiovascular Exam: +S1, +S2 - GI/Abdominal Exam GI & Abdominal Exam: Soft, Normal Bowel Sounds. absent: Guarding, Tenderness, Rebound - Neurological Exam Neurological Exam: Alert, Awake, Oriented x3 - Skin Skin Exam: Dry, Warm Assessment and Plan - Assessment and Plan (Free Text) Assessment: Assessment: Resolved SBO History of diverticulitis History of benign brain tumor Diabetes mellitus Hypertension Plan: Clear liquid diet GoLYTELY at 2 PM Nothing by mouth post midnight except meds For colonoscopy 07/07/17 Explained colonoscopy procedure to daughter at bedside Hold a.m. dose of Lovenox until after colonoscopy Check CMP and CBC in a.m. hold miralax during bowel prep Seen and discussed with Dr. Ruiz. <Elebrt Ruiz V - Last Filed: 07/06/17 23:34> Objective - Vital Signs/Intake and Output Vital Signs (last 24 hours): Temp Pulse Resp BP Pulse Ox 97.6 F 60 18 118/60 92 L 07/06/17 16:29 07/06/17 17:53 07/06/17 16:29 07/06/17 17:53 07/06/17 16:29 Intake and Output: 07/06/17 07/07/17 18:59 06:59 Intake Total 480 Balance 480 - Medications Medications: Current Medications Acetaminophen (Tylenol 325mg Tab) 650 mg PO Q6H PRN; Protocol PRN Reason: Pain, moderate (4-7) Last Admin: 07/04/17 09:00 Dose: 650 mg Amlodipine Besylate (Norvasc) 5 mg PO DAILY [facility] PRN Reason: Protocol Last Admin: 07/06/17 10:34 Dose: 5 mg Clonidine HCl (Catapres) 0.1 mg PO Q12H [facility] PRN Reason: Protocol Last Admin: 07/06/17 17:53 Dose: 0.1 mg Diazepam (Valium) 5 mg PO DAILY [facility] PRN Reason: Protocol Last Admin: 07/06/17 10:36 Dose: 5 mg Enoxaparin Sodium (Lovenox) 30 mg SC 0600 [facility] Last Admin: 07/06/17 05:49 Dose: 30 mg Home Med (Home Med) 1 unit PO DAILY [facility] PRN Reason: Protocol Last Admin: 07/06/17 10:36 Dose: 1 unit Home Med (Home Med) 1 unit PO QID [facility] PRN Reason: Protocol Last Admin: 07/06/17 21:31 Dose: 1 unit Insulin Human Lispro (Humalog Med) 0 units SC ACHS [facility] PRN Reason: Protocol Last Admin: 07/06/17 16:53 Dose: Not Given Magnesium Oxide (Mag-Ox) 400 mg PO BID [facility] PRN Reason: Protocol Last Admin: 07/06/17 17:52 Dose: 400 mg Ondansetron HCl (Zofran Tab) 4 mg PO Q8H PRN PRN Reason: Nausea/Vomiting Last Admin: 07/04/17 16:46 Dose: 4 mg Pantoprazole Sodium (Protonix Ec Tab) 40 mg PO 0600 [facility] PRN Reason: Protocol Last Admin: 07/06/17 05:49 Dose: 40 mg Polyethylene Glycol (Miralax) 17 gm PO BID [facility] PRN Reason: Protocol Last Admin: 07/06/17 17:54 Dose: 17 gm Pregabalin (Lyrica) 75 mg PO DAILY [facility] Last Admin: 07/06/17 10:33 Dose: 75 mg Sennosides (Senokot Tab) 8.6 mg PO DAILY [facility] PRN Reason: Protocol Last Admin: 07/06/17 10:36 Dose: 8.6 mg Tramadol HCl (Ultram) 50 mg PO TID PRN; Protocol PRN Reason: Pain, moderate (4-7) Last Admin: 07/05/17 05:27 Dose: 50 mg - Labs Labs: 07/06/17 05:20 07/06/17 05:20 Attending/Attestation - Attestation I have personally seen and examined this patient.: Yes I have fully participated in the care of the patient.: Yes I have reviewed all pertinent clinical information, including history, physical exam and plan: Yes Notes (Text): yelena 07/06/17 23:34
[2017-07-06] MEDS ORDERED: Peg-Electrolyte Oral Soln 4L (Golytely) PO ONE (14:00)
[2017-07-07] MEDS: Pantoprazole 40 mg EC Tab PO SCH (05:36)
[2017-07-07] MEDS: Enoxaparin 30 mg Syringe SC SCH (05:37)
[2017-07-07] MEDS: Insulin Lispro (humaLOG) MEDIUM Coverage SC SCH ×5 (06:40→22:06)
[2017-07-07 08:59] LABS: EOS # 0.2 (0.0-0.7); EOS % 3.9 % (1.5-5.0); GRAN # 1.38 (1.4-6.5); HEMATOCRIT 34.3 % (36.0-48.0); LYMPH % 49.5 % (22.0-35.0); MEAN CELL VOLUME 82.5 fl (80.0-105.0); MEAN CORPUSCULAR HEMOGLOBIN 25.7 pg (25.0-35.0); MEAN CORPUSCULAR HGB CONC 31.2 g/dl (31.0-37.0); MEAN PLATELET VOLUME 10.5 fl (7.0-11.0); MONO # 0.5 (0.1-0.6); MONO % 12.6 % (1.0-6.0); WHITE BLOOD COUNT 4.1 10^3/ul (4.5-11.0)
[2017-07-07 09:10] LABS: ALB/GLOB RATIO 1.2 (1.1-1.8); ALKALINE PHOSPHATASE 56 U/L (38-126); ALT/SGPT 60 U/L (7-56); AST/SGOT 45 U/L (14-36); BILIRUBIN,TOTAL 0.4 mg/dL (0.2-1.3); BLOOD UREA NITROGEN 11 mg/dL (7-21); CALCIUM 9.6 mg/dL (8.4-10.5); CARBON DIOXIDE 30 mmol/L (21-33); CHLORIDE 100 mmol/L (98-107); GFR AFRICAN-AMERICAN > 60; GLUCOSE,RANDOM 108 mg/dL (70-110); SODIUM 141 mmol/L (132-148); TOTAL PROTEIN 7.3 g/dL (5.8-8.3)
[2017-07-07] MEDS: VITAMIN B PO SCH ×4 (10:12→21:12)
[2017-07-07] MEDS: CONCOR PO SCH (10:12)
[2017-07-07] MEDS: POLYETHYLENE GLYCOL 3350 17 GM/Dose PACKET PO SCH ×2 (10:13→17:31)
[2017-07-07] MEDS: Magnesium Oxide 400 mg Tab UD PO SCH ×2 (10:13→17:32)
--- NOTE | 2017-07-07 12:32 | CP.PCM.DIS ---
Provider - Provider Date of Admission: 06/28/17 18:06 Attending physician: Nabor Nicole MD Primary care physician: Nabor Nicole MD Time Spent in preparation of Discharge (in minutes): 60 Hospital Course - Lab Results Lab Results: Micro Results 07/04/17 16:20 Urine,Clean Catch Urine Culture - Final Escherichia Coli Enterococcus Faecalis Most Recent Lab Values WBC 4.1 10^3/ul (4.5-11.0) L 07/07/17 08:30 RBC 4.16 10^6/uL (3.5-6.1) 07/07/17 08:30 Hgb 10.7 g/dL (12.0-16.0) L 07/07/17 08:30 Hct 34.3 % (36.0-48.0) L 07/07/17 08:30 MCV 82.5 fl (80.0-105.0) 07/07/17 08:30 MCH 25.7 pg (25.0-35.0) 07/07/17 08:30 MCHC 31.2 g/dl (31.0-37.0) 07/07/17 08:30 RDW 17.0 % (11.5-14.5) H 07/07/17 08:30 Plt Count 206 10^3/uL (120.0-450.0) 07/07/17 08:30 MPV 10.5 fl (7.0-11.0) 07/07/17 08:30 Gran % 34.0 % (50.0-68.0) L 07/07/17 08:30 Lymph % (Auto) 49.5 % (22.0-35.0) H 07/07/17 08:30 Dickens % (Auto) 12.6 % (1.0-6.0) H 07/07/17 08:30 Eos % (Auto) 3.9 % (1.5-5.0) 07/07/17 08:30 Baso % (Auto) 0.0 % (0.0-3.0) 07/07/17 08:30 Gran # 1.38 (1.4-6.5) L 07/07/17 08:30 Lymph # 2.0 (1.2-3.4) 07/07/17 08:30 Dickens # 0.5 (0.1-0.6) 07/07/17 08:30 Eos # 0.2 (0.0-0.7) 07/07/17 08:30 Baso # 0.00 K/mm3 (0.0-2.0) 07/07/17 08:30 Sodium 141 mmol/L (132-148) 07/07/17 08:30 Potassium 4.0 mmol/L (3.6-5.0) 07/07/17 08:30 Chloride 100 mmol/L (98-107) 07/07/17 08:30 Carbon Dioxide 30 mmol/L (21-33) 07/07/17 08:30 Anion Gap 15 (10-20) 07/07/17 08:30 BUN 11 mg/dL (7-21) 07/07/17 08:30 Creatinine 1.0 mg/dL (0.5-1.4) 07/07/17 08:30 Est GFR ( Amer) > 60 07/07/17 08:30 Est GFR (Non-Af Amer) 52 07/07/17 08:30 POC Glucose (mg/dL) 139 mg/dL (65-110) H 07/07/17 06:10 Random Glucose 108 mg/dL (70-110) 07/07/17 08:30 Calcium 9.6 mg/dL (8.4-10.5) 07/07/17 08:30 Phosphorus 3.5 mg/dL (2.5-4.5) 07/03/17 09:25 Magnesium 1.9 mg/dL (1.7-2.2) 07/03/17 09:25 Total Bilirubin 0.4 mg/dL (0.2-1.3) 07/07/17 08:30 AST 45 U/L (14-36) H 07/07/17 08:30 ALT 60 U/L (7-56) H 07/07/17 08:30 Alkaline Phosphatase 56 U/L (38-126) 07/07/17 08:30 Total Protein 7.3 g/dL (5.8-8.3) 07/07/17 08:30 Albumin 4.0 g/dL (3.0-4.8) 07/07/17 08:30 Globulin 3.3 gm/dL 07/07/17 08:30 Albumin/Globulin Ratio 1.2 (1.1-1.8) 07/07/17 08:30 Discharge Exam - Head Exam Head Exam: NORMOCEPHALIC Discharge Plan - Follow Up Plan Condition: GOOD Disposition: HOME/ ROUTINE Instructions: Heart Failure (DC), Hyperkalemia (DC), Chronic Hypertension (DC) Referrals: Nabor Nicole MD [Primary Care Provider] -
[2017-07-07] MEDS ORDERED: Sodium Chloride 0.9% 1,000 ML IV SCH (14:30)
[2017-07-07] MEDS: Ciprofloxacin/Dexamethasone OTIC SUSP AD SCH (18:29)
[2017-07-08] MEDS: Enoxaparin 30 mg Syringe SC SCH (05:26)
[2017-07-08] MEDS: Pantoprazole 40 mg EC Tab PO SCH (05:27)
[2017-07-08] MEDS: Insulin Lispro (humaLOG) MEDIUM Coverage SC SCH ×3 (06:42→17:04)
[2017-07-08] MEDS: VITAMIN B PO SCH ×2 (09:24→17:00)
[2017-07-08] MEDS: Magnesium Oxide 400 mg Tab UD PO SCH ×2 (09:28→17:01)
[2017-07-08] MEDS: CONCOR PO SCH (09:30)
[2017-07-08] MEDS: Ciprofloxacin/Dexamethasone OTIC SUSP AD SCH ×2 (09:30→17:01)
[2017-07-08] MEDS: POLYETHYLENE GLYCOL 3350 17 GM/Dose PACKET PO SCH ×2 (09:31→17:01)
[2017-07-08 09:33] VITALS: PULSE 68
[2017-07-08 10:47] VITALS: RESP 20; TEMP 98.3; O2SAT 99
[2017-07-08 17:12] VITALS: BP 119/62
--- NOTE | 2017-07-09 00:04 | CP.PCM.PN ---
Subjective - Date & Time of Evaluation Date of Evaluation: 08/07/17 Time of Evaluation: 12:15 Objective - Vital Signs/Intake and Output Vital Signs (last 24 hours): Temp Pulse Resp BP Pulse Ox 98.3 F 68 20 119/62 99 07/08/17 10:46 07/08/17 17:05 07/08/17 10:46 07/08/17 17:05 07/08/17 10:46 - Labs Labs: 07/07/17 08:30 07/07/17 08:30 Assessment and Plan - Assessment and Plan (Free Text) Assessment: p
--- NOTE | 2017-07-09 08:34 | CP.PCM.DIS ---
<JOSE R QUEZADA - Last Filed: 07/09/17 08:25> Provider - Provider Date of Admission: 06/28/17 18:06 Attending physician: Nabor Trinidad MD Primary care physician: Nabor Trinidad MD Consults: GI: Sara Surg: Newell Time Spent in preparation of Discharge (in minutes): 45 Hospital Course - Lab Results Lab Results: Micro Results 07/04/17 16:20 Urine,Clean Catch Urine Culture - Final Escherichia Coli Enterococcus Faecalis Most Recent Lab Values WBC 4.1 10^3/ul (4.5-11.0) L 07/07/17 08:30 RBC 4.16 10^6/uL (3.5-6.1) 07/07/17 08:30 Hgb 10.7 g/dL (12.0-16.0) L 07/07/17 08:30 Hct 34.3 % (36.0-48.0) L 07/07/17 08:30 MCV 82.5 fl (80.0-105.0) 07/07/17 08:30 MCH 25.7 pg (25.0-35.0) 07/07/17 08:30 MCHC 31.2 g/dl (31.0-37.0) 07/07/17 08:30 RDW 17.0 % (11.5-14.5) H 07/07/17 08:30 Plt Count 206 10^3/uL (120.0-450.0) 07/07/17 08:30 MPV 10.5 fl (7.0-11.0) 07/07/17 08:30 Gran % 34.0 % (50.0-68.0) L 07/07/17 08:30 Lymph % (Auto) 49.5 % (22.0-35.0) H 07/07/17 08:30 [place] % (Auto) 12.6 % (1.0-6.0) H 07/07/17 08:30 Eos % (Auto) 3.9 % (1.5-5.0) 07/07/17 08:30 Baso % (Auto) 0.0 % (0.0-3.0) 07/07/17 08:30 Gran # 1.38 (1.4-6.5) L 07/07/17 08:30 Lymph # 2.0 (1.2-3.4) 07/07/17 08:30 [place] # 0.5 (0.1-0.6) 07/07/17 08:30 Eos # 0.2 (0.0-0.7) 07/07/17 08:30 Baso # 0.00 K/mm3 (0.0-2.0) 07/07/17 08:30 Sodium 141 mmol/L (132-148) 07/07/17 08:30 Potassium 4.0 mmol/L (3.6-5.0) 07/07/17 08:30 Chloride 100 mmol/L (98-107) 07/07/17 08:30 Carbon Dioxide 30 mmol/L (21-33) 07/07/17 08:30 Anion Gap 15 (10-20) 07/07/17 08:30 BUN 11 mg/dL (7-21) 07/07/17 08:30 Creatinine 1.0 mg/dL (0.5-1.4) 07/07/17 08:30 Est GFR ( Amer) > 60 07/07/17 08:30 Est GFR (Non-Af Amer) 52 07/07/17 08:30 POC Glucose (mg/dL) 91 mg/dL (65-110) 07/08/17 17:03 Random Glucose 108 mg/dL (70-110) 07/07/17 08:30 Calcium 9.6 mg/dL (8.4-10.5) 07/07/17 08:30 Phosphorus 3.5 mg/dL (2.5-4.5) 07/03/17 09:25 Magnesium 1.9 mg/dL (1.7-2.2) 07/03/17 09:25 Total Bilirubin 0.4 mg/dL (0.2-1.3) 07/07/17 08:30 AST 45 U/L (14-36) H 07/07/17 08:30 ALT 60 U/L (7-56) H 07/07/17 08:30 Alkaline Phosphatase 56 U/L (38-126) 07/07/17 08:30 Total Protein 7.3 g/dL (5.8-8.3) 07/07/17 08:30 Albumin 4.0 g/dL (3.0-4.8) 07/07/17 08:30 Globulin 3.3 gm/dL 07/07/17 08:30 Albumin/Globulin Ratio 1.2 (1.1-1.8) 07/07/17 08:30 - Hospital Course Hospital Course: Patient is a 89 year old female with a PMHX of diverticulitis, HTN, benign brain tumor, cataracts, DM, sarcoidosis, arthritis, falls who was admitted to the hospital for evaluation and treatment of abdominal pain. With the use of physical examinations, lab work, and imaging the patient was diagnosed with a small bowel obstruction and hyperkalemia. A CT of the abdomen was done showing a small hiatal hernia and a small bowel obstruction. During her hospital stay the patient was also seen by general surgery, Dr. Newell who advised no surgical intervention was needed. Patient was given a glycerin tablet and experienced multiple bowel movement/flatus and is tolerating her diet without N/ V indicating resolution of the small bowel obstruction. Patient experienced right upper extremity swelling secondary to a peripheral IV infiltration. Doppler ultrasound the right upper extremity was negative for DVT. Patient was determined to be medically stable for to discharge to the TCU. During TCU admission, events were significant for HTN, constipation and LE edema increase was noted, which were resolved with pharmacologic intervention. PT evaluated and treated patient, which she tolerated well. GI followed pt while in TCU and planned for possible colonscopy. On day of discharge, pt was seen and examined at bedside. Pt denied any acute overnight events. Pt denied CP, SOB, n/v/d, fever, chills, abomdinal pain, fatigue, dizziness, dysuria. Pt was discharged and advised to follow up as an outpatient for further workup. Discharge Exam - Head Exam Head Exam: NORMOCEPHALIC - Eye Exam Eye Exam: EOMI, PERRL Pupil Exam: PERRL - ENT Exam ENT Exam: Mucous Membranes Moist - Neck Exam Neck exam: Full Rom - Respiratory Exam Respiratory Exam: Clear to PA & Lateral. absent: Rales, Rhonchi, Wheezes, Respiratory Distress - Cardiovascular Exam Cardiovascular Exam: RRR. absent: Diastolic murmur, Gallop, Rubs, Systolic Murmur - GI/Abdominal Exam GI & Abdominal Exam: Soft. absent: Distended, Rebound, Rigid, Tenderness - Extremities Exam Extremities exam: normal inspection - Neurological Exam Neurological exam: Alert, Oriented x3 - Psychiatric Exam Psychiatric exam: Normal Affect, Normal Mood - Skin Skin Exam: Dry, Intact, Normal Color Discharge Plan - Follow Up Plan Condition: GOOD Disposition: HOME/ ROUTINE Instructions: Heart Failure (DC), Heart Failure (GEN), Pacemaker (DC), Pacemaker (GEN), Pulmonary Edema (DC), Pulmonary Edema (GEN), Hyperkalemia (DC) , Chronic Hypertension (DC), Ascites (DC), Ascites (GEN) Additional Instructions: 1. Follow up with PMD within 1 week 2. Follow up with GI as needed 3. Take medications as prescribed 4. Return to ED if symptoms worsen Referrals: Nabor Trinidad MD [Primary Care Provider] - Elbert Ruiz MD [Medical Doctor] - Richie Newell MD [Staff Provider] - <Barrett Crooks S - Last Filed: 07/09/17 08:47> Provider - Provider Date of Admission: 06/28/17 18:06 Attending physician: Nabor Trinidad MD covering for dr trinidad discussed w/ resident at length went over meds labs prxs should follow up w/ dr trinidad in 3 days Primary care physician: Nabor Trinidad MD Hospital Course - Lab Results Lab Results: Micro Results 07/04/17 16:20 Urine,Clean Catch Urine Culture - Final Escherichia Coli Enterococcus Faecalis Most Recent Lab Values WBC 4.1 10^3/ul (4.5-11.0) L 07/07/17 08:30 RBC 4.16 10^6/uL (3.5-6.1) 07/07/17 08:30 Hgb 10.7 g/dL (12.0-16.0) L 07/07/17 08:30 Hct 34.3 % (36.0-48.0) L 07/07/17 08:30 MCV 82.5 fl (80.0-105.0) 07/07/17 08:30 MCH 25.7 pg (25.0-35.0) 07/07/17 08:30 MCHC 31.2 g/dl (31.0-37.0) 07/07/17 08:30 RDW 17.0 % (11.5-14.5) H 07/07/17 08:30 Plt Count 206 10^3/uL (120.0-450.0) 07/07/17 08:30 MPV 10.5 fl (7.0-11.0) 07/07/17 08:30 Gran % 34.0 % (50.0-68.0) L 07/07/17 08:30 Lymph % (Auto) 49.5 % (22.0-35.0) H 07/07/17 08:30 [place] % (Auto) 12.6 % (1.0-6.0) H 07/07/17 08:30 Eos % (Auto) 3.9 % (1.5-5.0) 07/07/17 08:30 Baso % (Auto) 0.0 % (0.0-3.0) 07/07/17 08:30 Gran # 1.38 (1.4-6.5) L 07/07/17 08:30 Lymph # 2.0 (1.2-3.4) 07/07/17 08:30 [place] # 0.5 (0.1-0.6) 07/07/17 08:30 Eos # 0.2 (0.0-0.7) 07/07/17 08:30 Baso # 0.00 K/mm3 (0.0-2.0) 07/07/17 08:30 Sodium 141 mmol/L (132-148) 07/07/17 08:30 Potassium 4.0 mmol/L (3.6-5.0) 07/07/17 08:30 Chloride 100 mmol/L (98-107) 07/07/17 08:30 Carbon Dioxide 30 mmol/L (21-33) 07/07/17 08:30 Anion Gap 15 (10-20) 07/07/17 08:30 BUN 11 mg/dL (7-21) 07/07/17 08:30 Creatinine 1.0 mg/dL (0.5-1.4) 07/07/17 08:30 Est GFR ( Amer) > 60 07/07/17 08:30 Est GFR (Non-Af Amer) 52 07/07/17 08:30 POC Glucose (mg/dL) 91 mg/dL (65-110) 07/08/17 17:03 Random Glucose 108 mg/dL (70-110) 07/07/17 08:30 Calcium 9.6 mg/dL (8.4-10.5) 07/07/17 08:30 Phosphorus 3.5 mg/dL (2.5-4.5) 07/03/17 09:25 Magnesium 1.9 mg/dL (1.7-2.2) 07/03/17 09:25 Total Bilirubin 0.4 mg/dL (0.2-1.3) 07/07/17 08:30 AST 45 U/L (14-36) H 07/07/17 08:30 ALT 60 U/L (7-56) H 07/07/17 08:30 Alkaline Phosphatase 56 U/L (38-126) 07/07/17 08:30 Total Protein 7.3 g/dL (5.8-8.3) 07/07/17 08:30 Albumin 4.0 g/dL (3.0-4.8) 07/07/17 08:30 Globulin 3.3 gm/dL 07/07/17 08:30 Albumin/Globulin Ratio 1.2 (1.1-1.8) 07/07/17 08:30
== END 2017-07-08 18:39 | disposition home or self-care (01) | DRG 390 ==
LOC: TRCU 18:06
PROVIDERS: ADMIT Internal Medicine; ATTEND Internal Medicine
PROC: F07Z9FZ Gait Training/Functional Ambulation Treatment using Assistive, Adaptive, Supportive or Protective Equipment (ICD-10-PCS; principal; 2017-06-30)
PROC: F07L6FZ Therapeutic Exercise Treatment of Musculoskeletal System - Lower Back / Lower Extremity using Assistive, Adaptive, Supportive or Protective Equipment (ICD-10-PCS; 2017-06-30)
PROC: F07Z8FZ Transfer Training Treatment using Assistive, Adaptive, Supportive or Protective Equipment (ICD-10-PCS; 2017-07-02)
PROC: F08Z1FZ Dressing Techniques Treatment using Assistive, Adaptive, Supportive or Protective Equipment (ICD-10-PCS; 2017-07-03)
PROC: F08Z2FZ Grooming/Personal Hygiene Treatment using Assistive, Adaptive, Supportive or Protective Equipment (ICD-10-PCS; 2017-07-03)
DX: K56.60 Unspecified intestinal obstruction (principal); E87.5 Hyperkalemia; D86.9 Sarcoidosis, unspecified; E11.9 Type 2 diabetes mellitus without complications; I10 Essential (primary) hypertension; D64.9 Anemia, unspecified; T80.89XD Other complications following infusion, transfusion and therapeutic injection, subsequent encounter; M79.89 Other specified soft tissue disorders; Y84.8 Other medical procedures as the cause of abnormal reaction of the patient, or of later complication, without mention of misadventure at the time of the procedure; K44.9 Diaphragmatic hernia without obstruction or gangrene; M19.90 Unspecified osteoarthritis, unspecified site; H26.9 Unspecified cataract; K21.9 Gastro-esophageal reflux disease without esophagitis; K59.00 Constipation, unspecified; Z86.011 Personal history of benign neoplasm of the brain

== ENCOUNTER 2017-07-07 12:21 | Day surgery (SDC) | payer MEDICARE ==
[2017-07-05 11:17] VITALS: BMI 34.5
[2017-07-07] MEDS ORDERED: Etomidate 20 mg/10ml Inj IV ONE (13:45)
[2017-07-07] MEDS ORDERED: Lidocaine 2% Inj (20ml) ONE (13:45)
[2017-07-07] MEDS ORDERED: Propofol 10 mg/ml Inj (20 ML) ONE ×2 (13:45→13:51)
[2017-07-07 15:02] VITALS: RESP 16
[2017-07-07 15:24] VITALS: PULSE 74; TEMP 97.8; O2SAT 96
[2017-07-07 15:55] VITALS: BP 136/74
== END 2017-07-07 15:49 ==
LOC: ENDO 12:21
PROVIDERS: ATTEND Internal Medicine Gastroenterology
DX: K63.5 Polyp of colon (principal); K62.1 Rectal polyp; E11.9 Type 2 diabetes mellitus without complications; I10 Essential (primary) hypertension; E78.5 Hyperlipidemia, unspecified
CPT/HCPCS: 45380; 82948; 88305; J2704; J7040